=== PATIENT | female | born 1945 | race Hispanic/Latino ===

== ENCOUNTER → 2018-11-28 | Outpatient (CLI) | payer OTHER | END | disposition home or self-care (01) | LOC: RAH 10:40 | PROVIDERS: ATTEND Internal Medicine Cardiovascular Disease | DX: Z13.6 Encounter for screening for cardiovascular disorders (principal) | CPT/HCPCS: 75571 ==

== ENCOUNTER → 2019-01-10 | Outpatient (CLI) | payer MEDICARE | END | disposition home or self-care (01) | LOC: RAH 09:21 | PROVIDERS: ATTEND Family Medicine | DX: K80.20 Calculus of gallbladder without cholecystitis without obstruction (principal); I70.0 Atherosclerosis of aorta | CPT/HCPCS: 76700 ==

== ENCOUNTER → 2019-03-05 | Outpatient (CLI) | payer MEDICARE ==
[2019-03-05 15:28] LABS: ALBUMIN 3.6 g/dL (3.5-5.0); BILIRUBIN,DIRECT 0.1 mg/dL (0.0-0.3); BILIRUBIN,TOTAL 0.4 mg/dL (0.2-1.0); TOTAL PROTEIN, SERUM 7.4 g/dL (6.0-8.3)
[2019-03-06 11:17] LABS: CREATININE 0.8 mg/dL (0.5-1.5)
== END | disposition home or self-care (01) ==
LOC: LAB 14:46
PROVIDERS: ATTEND Internal Medicine Gastroenterology
DX: R94.5 Abnormal results of liver function studies (principal)
CPT/HCPCS: 36415; 80076; 82565; 84520

== ENCOUNTER → 2019-03-07 | Outpatient (CLI) | payer MEDICARE ==
[~2019-03-07] MED LIST: GADODIAMIDE 5 MMOL/10 ML VIAL 5 MMOL/10 ML VIAL IV ONE
== END | disposition home or self-care (01) ==
LOC: RAH 07:48
PROVIDERS: ATTEND Internal Medicine Gastroenterology
DX: R94.5 Abnormal results of liver function studies (principal)
CPT/HCPCS: 74183; A9579

== ENCOUNTER → 2019-08-07 | Outpatient (CLI) | payer MEDICARE | END | disposition home or self-care (01) | LOC: RAH 08:08 | PROVIDERS: ATTEND Internal Medicine Gastroenterology | DX: K80.20 Calculus of gallbladder without cholecystitis without obstruction (principal); R94.5 Abnormal results of liver function studies | CPT/HCPCS: 76700 ==

== ENCOUNTER 2020-01-16 09:32 | Inpatient (IN) | payer OTHER, MEDICARE ==
[~2020-01-16] VITALS: Ht 147.3 cm; Wt 52.7 kg
[2020-01-16 09:51] LABS: BASOPHILS % (AUTO) 0.5 % (0.0-5.0); EOSINOPHILS % (AUTO) 2.5 % (0.0-8.0); HEMATOCRIT 33.6 % (36-48); LYMPHOCYTES % (AUTO) 25.4 % (21.0-51.0); MEAN CORPUSCULAR HEMOGLOBIN 29.6 pg (27.0-33.0); MEAN CORPUSCULAR HGB CONC 33.3 g/dL (32.0-36.0); MEAN CORPUSCULAR VOLUME 88.7 fL (79-99); MONOCYTES % (AUTO) 6.6 % (3.0-13.0); NEUTROPHILS % (AUTO) 64.9 % (40.0-77.0); PLATELET COUNT (AUTO) 203 K/uL (130-400); RED BLOOD CELL COUNT(AUTO) 3.79 MIL/uL (4.00-5.50); WHITE BLOOD COUNT (AUTO) 7.7 K/uL (4.8-10.8)
[2020-01-16] MEDS ORDERED: ASPIRIN 325 MG TABLET ONE (09:52)
[2020-01-16 10:00] LABS: CREATININE 0.8 mg/dL (0.5-1.5); POTASSIUM 4.5 mmol/L (3.5-5.1)
[2020-01-16 10:04] LABS: ALBUMIN 3.9 g/dL (3.5-5.0); BILIRUBIN,TOTAL 0.4 mg/dL (0.2-1.0); TOTAL PROTEIN, SERUM 8.4 g/dL (6.0-8.3)
[2020-01-16 10:20] LABS: INR 0.97 (0.85-1.15); PARTIAL THROMBOPLASTIN TIME 26.5 SEC (26.3-35.5); PROTHROMBIN TIME 10.5 SEC (9.6-11.6)
[2020-01-16] MEDS ORDERED: SODIUM CHLORIDE 0.9% 1000ML 1,000 ML IV SCH (13:02)
[2020-01-16] MEDS ORDERED: DiphenhydrAMINE HCL 50 MG/ML VIAL IV PRN (13:15)
[2020-01-16] MEDS ORDERED: ACETAMINOPHEN 325 MG TAB PO PRN (13:15)
[2020-01-16] MEDS ORDERED: HYDRALAZINE HCL 20 MG/ML VIAL IV PRN (13:15)
[2020-01-16] MEDS ORDERED: MORPHINE SULFATE 2 MG/ML 1ML SYG IV PRN (13:15)
[2020-01-16] MEDS ORDERED: NITROGLYCERIN 0.4 MG SL TAB SL PRN (13:15)
[2020-01-16] MEDS ORDERED: DIPHENHYDRAMINE HCL 25 MG CAPSULE PO PRN (13:15)
[2020-01-16 14:05] LABS: % IRON SATURATION 27.2 % (22-44)
[2020-01-16] MEDS ORDERED: SODIUM CHLORIDE 0.9% 1000ML 1,000 ML IV ONE (15:04)
[2020-01-16 21:18] VITALS: BP 156/55
[2020-01-16] MEDS: METOPROLOL TARTRATE 25 MG TAB PO SCH (22:31)
[2020-01-16] MEDS: FAMOTIDINE/PF 20 MG/2 ML VIAL IV SCH (22:31)
[2020-01-16] MEDS: ATORVASTATIN CALCIUM 20 MG TABLET PO SCH (22:31)
[2020-01-16 23:34] VITALS: BP 147/57
[2020-01-16] MEDS ORDERED: METO-408 PO (23:54)
[2020-01-16] MEDS ORDERED: INSU100V12 SQ ×2 (23:54)
[2020-01-16] MEDS ORDERED: LEVO50TA11 PO (23:54)
[2020-01-16] MEDS ORDERED: METF-446 PO (23:54)
[2020-01-16] MEDS ORDERED: LISI-613 PO (23:54)
[2020-01-16] MEDS ORDERED: ISOS30TA6 PO (23:54)
[2020-01-16] MEDS ORDERED: NITR0.4T50 SL (23:54)
[2020-01-17 02:18] LABS: BASOPHILS % (AUTO) 0.5 % (0.0-5.0); EOSINOPHILS % (AUTO) 3.4 % (0.0-8.0); HEMATOCRIT 31.6 % (36-48); LYMPHOCYTES % (AUTO) 32.9 % (21.0-51.0); MEAN CORPUSCULAR HEMOGLOBIN 29.6 pg (27.0-33.0); MEAN CORPUSCULAR HGB CONC 32.9 g/dL (32.0-36.0); MONOCYTES % (AUTO) 6.6 % (3.0-13.0); NEUTROPHILS % (AUTO) 56.3 % (40.0-77.0); PLATELET COUNT (AUTO) 188 K/uL (130-400); RED BLOOD CELL COUNT(AUTO) 3.51 MIL/uL (4.00-5.50); WHITE BLOOD COUNT (AUTO) 8.8 K/uL (4.8-10.8)
[2020-01-17 02:33] LABS: HEMOGLOBIN A1C 6.3 % (4.0-6.0)
[2020-01-17 02:40] LABS: ALBUMIN 3.5 g/dL (3.5-5.0); BILIRUBIN,TOTAL 0.4 mg/dL (0.2-1.0); CREATININE 0.9 mg/dL (0.5-1.5); POTASSIUM 4.6 mmol/L (3.5-5.1); TOTAL PROTEIN, SERUM 7.4 g/dL (6.0-8.3)
[2020-01-17 02:53] LABS: B-TYPE NATRIURETIC PEPTIDE 99 pg/mL (0-100)
[2020-01-17 03:22] VITALS: BP 142/51
[2020-01-17 05:02] LABS: INR 0.99 (0.85-1.15); PARTIAL THROMBOPLASTIN TIME 27.1 SEC (26.3-35.5); PROTHROMBIN TIME 10.7 SEC (9.6-11.6)
[2020-01-17] MEDS: ASPIRIN 325 MG TABLET PO SCH (07:24)
[2020-01-17] MEDS: METOPROLOL TARTRATE 25 MG TAB PO SCH (07:24)
[2020-01-17] MEDS: FAMOTIDINE/PF 20 MG/2 ML VIAL IV SCH ×2 (07:24→20:10)
[2020-01-17 07:45] VITALS: BP 135/55
--- NOTE | 2020-01-17 08:00 | NUR ---
ASSESSMENT PT IS AAOX3 DENIES CP DENIES SOB DENIES NV NO COMPLAINTS RESTING IN BED. BREATHING PATTERN IS EVEN AND UNLABORED. NO VISIBLE SIGNS OF DISTRESS NOTED, CALL LIGHT WITHIN REACH. FAMILY AT BEDSIDE.
[2020-01-17] MEDS: INSULIN HUMULIN R 100 UNIT/ML 3ML SQ SCH ×5 (11:33→21:00)
[2020-01-17 11:39] VITALS: BP 124/57
[2020-01-17] MEDS ORDERED: NITROGLYCERIN 0.4 MG SL TAB SL PRN (14:00)
--- NOTE | 2020-01-17 14:58 | NUR ---
INITIAL Patient lives with daughter, Claudette Ji, [phone]. Another emergency contact is son, Bull Ji, [phone]. No home services. DME: BPM, glucometer (uses insulin). Patient is able to complete ADL's independently and drives. PCP is Dr. Caron Felipe. Pharmacy [facility]. DCP is home. Addendum: 01/17/20 at 1502 by MINRA PUCKETT SS Amended: Links added.
--- NOTE | 2020-01-17 15:27 | NUR ---
DR UNDERWOOD ROUNDED SAW PATIENT, NO NEW ORDERS RECEIVED AT THIS TIME
--- NOTE | 2020-01-17 15:34 | NUR ---
RD NOTIFICATION Pt admitted for acute chest pain. Pt with no recent weight loss. Good PO intake. elevated BG levels. Recommend to add 60gm CCD diet order. Pending surgical evaluation. RD to continue to monitor. Please notify as additional nutrition concerns arise. Thank you. Addendum: 01/17/20 at 1536 by [address] FELIPE K[address]ID RD RD Amended: Links added.
[2020-01-17 15:39] VITALS: BP 139/52
[2020-01-17 19:41] VITALS: BP 133/55
[2020-01-17] MEDS: ATORVASTATIN CALCIUM 20 MG TABLET PO SCH (20:10)
[2020-01-18] VITALS: BP 153/61
[2020-01-18 04:17] VITALS: BP 148/60
[2020-01-18 05:31] LABS: BASOPHILS % (AUTO) 0.6 % (0.0-5.0); EOSINOPHILS % (AUTO) 2.8 % (0.0-8.0); HEMATOCRIT 34.8 % (36-48); LYMPHOCYTES % (AUTO) 27.8 % (21.0-51.0); MEAN CORPUSCULAR HEMOGLOBIN 30.2 pg (27.0-33.0); MEAN CORPUSCULAR HGB CONC 33.9 g/dL (32.0-36.0); MONOCYTES % (AUTO) 6.2 % (3.0-13.0); NEUTROPHILS % (AUTO) 62.2 % (40.0-77.0); PLATELET COUNT (AUTO) 191 K/uL (130-400); RED BLOOD CELL COUNT(AUTO) 3.91 MIL/uL (4.00-5.50); RED CELL DISTRIBUTION WIDTH 12.8 % (11.0-15.5); WHITE BLOOD COUNT (AUTO) 8.5 K/uL (4.8-10.8)
[2020-01-18 05:48] LABS: ALBUMIN 3.7 g/dL (3.5-5.0); BILIRUBIN,TOTAL 0.4 mg/dL (0.2-1.0); CREATININE 0.8 mg/dL (0.5-1.5); POTASSIUM 4.7 mmol/L (3.5-5.1)
[2020-01-18] MEDS: LEVOTHYROXINE 50 MCG TABLET PO SCH (07:25)
[2020-01-18] MEDS: INSULIN HUMULIN R 100 UNIT/ML 3ML SQ SCH ×7 (07:26→21:00)
[2020-01-18] MEDS: INSULIN GLARGINE 100 UNITS/ML 10 ML VIAL SQ SCH (07:27)
[2020-01-18 07:35] VITALS: BP 151/52
[2020-01-18] MEDS ORDERED: ASPIRIN 81MG TAB.CHEW ONE (08:37)
[2020-01-18] MEDS: FAMOTIDINE/PF 20 MG/2 ML VIAL IV SCH ×2 (08:44→22:10)
[2020-01-18] MEDS: ISOSORBIDE MONO 30MG TAB SR PO SCH (08:44)
[2020-01-18] MEDS: METOPROLOL SUCCINATE 50 MG TAB.SR.24H PO SCH (08:44)
[2020-01-18] MEDS: LISINOPRIL 20 MG TABLET PO SCH (08:44)
[2020-01-18] MEDS: ASPIRIN 325 MG TABLET PO SCH (08:44)
[2020-01-18 11:31] VITALS: BP 120/59
[2020-01-18 15:48] VITALS: BP 132/57
[2020-01-18 19:45] VITALS: BP 126/57
[2020-01-18] MEDS: ATORVASTATIN CALCIUM 20 MG TABLET PO SCH (22:10)
[2020-01-19 00:07] VITALS: BP 109/49
[2020-01-19 04:08] VITALS: BP 125/53
[2020-01-19 04:23] LABS: BASOPHILS % (AUTO) 0.6 % (0.0-5.0); EOSINOPHILS % (AUTO) 3.8 % (0.0-8.0); HEMATOCRIT 31.5 % (36-48); LYMPHOCYTES % (AUTO) 28.2 % (21.0-51.0); MEAN CORPUSCULAR HEMOGLOBIN 29.7 pg (27.0-33.0); MEAN CORPUSCULAR HGB CONC 33.7 g/dL (32.0-36.0); MEAN CORPUSCULAR VOLUME 88.2 fL (79-99); MONOCYTES % (AUTO) 6.9 % (3.0-13.0); NEUTROPHILS % (AUTO) 60.2 % (40.0-77.0); PLATELET COUNT (AUTO) 193 K/uL (130-400); RED BLOOD CELL COUNT(AUTO) 3.57 MIL/uL (4.00-5.50); RED CELL DISTRIBUTION WIDTH 12.9 % (11.0-15.5); WHITE BLOOD COUNT (AUTO) 8.9 K/uL (4.8-10.8)
[2020-01-19 04:36] LABS: ALBUMIN 3.6 g/dL (3.5-5.0); BILIRUBIN,TOTAL 0.5 mg/dL (0.2-1.0); CREATININE 0.8 mg/dL (0.5-1.5); POTASSIUM 4.3 mmol/L (3.5-5.1); TOTAL PROTEIN, SERUM 7.6 g/dL (6.0-8.3)
[2020-01-19] MEDS: INSULIN HUMULIN R 100 UNIT/ML 3ML SQ SCH ×5 (06:33→21:00)
[2020-01-19] MEDS: LEVOTHYROXINE 50 MCG TABLET PO SCH (07:22)
[2020-01-19 07:29] VITALS: BP 126/47
[2020-01-19] MEDS: ASPIRIN 325 MG TABLET PO SCH (08:53)
[2020-01-19] MEDS: METOPROLOL SUCCINATE 50 MG TAB.SR.24H PO SCH (08:54)
[2020-01-19] MEDS: LISINOPRIL 20 MG TABLET PO SCH (08:54)
[2020-01-19] MEDS: ISOSORBIDE MONO 30MG TAB SR PO SCH (08:54)
[2020-01-19] MEDS: FAMOTIDINE/PF 20 MG/2 ML VIAL IV SCH ×2 (08:54→20:54)
[2020-01-19] MEDS: INSULIN GLARGINE 100 UNITS/ML 10 ML VIAL SQ SCH (08:58)
[2020-01-19 12:01] VITALS: BP 118/47
[2020-01-19 15:42] VITALS: BP 110/48
[2020-01-19 20:00] VITALS: BP 120/54
[2020-01-19] MEDS: ATORVASTATIN CALCIUM 20 MG TABLET PO SCH (20:54)
[2020-01-20 00:28] VITALS: BP 121/52
[2020-01-20 04:02] VITALS: BP 153/66
[2020-01-20 04:25] LABS: BASOPHILS % (AUTO) 0.4 % (0.0-5.0); EOSINOPHILS % (AUTO) 4.1 % (0.0-8.0); HEMATOCRIT 32.6 % (36-48); MEAN CORPUSCULAR HEMOGLOBIN 29.8 pg (27.0-33.0); MEAN CORPUSCULAR HGB CONC 33.7 g/dL (32.0-36.0); MEAN CORPUSCULAR VOLUME 88.3 fL (79-99); NEUTROPHILS % (AUTO) 57.1 % (40.0-77.0); PLATELET COUNT (AUTO) 185 K/uL (130-400); RED BLOOD CELL COUNT(AUTO) 3.69 MIL/uL (4.00-5.50); RED CELL DISTRIBUTION WIDTH 12.6 % (11.0-15.5); WHITE BLOOD COUNT (AUTO) 7.8 K/uL (4.8-10.8)
[2020-01-20 04:40] LABS: ALBUMIN 3.7 g/dL (3.5-5.0); BILIRUBIN,TOTAL 0.5 mg/dL (0.2-1.0); CREATININE 0.8 mg/dL (0.5-1.5); POTASSIUM 4.1 mmol/L (3.5-5.1); TOTAL PROTEIN, SERUM 7.9 g/dL (6.0-8.3)
[2020-01-20] MEDS: INSULIN HUMULIN R 100 UNIT/ML 3ML SQ SCH ×2 (06:56→11:30)
[2020-01-20] MEDS: LEVOTHYROXINE 50 MCG TABLET PO SCH (06:59)
[2020-01-20 08:08] VITALS: BP 121/53
[2020-01-20] MEDS: INSULIN GLARGINE 100 UNITS/ML 10 ML VIAL SQ SCH (08:10)
[2020-01-20] MEDS: FAMOTIDINE/PF 20 MG/2 ML VIAL IV SCH (08:52)
[2020-01-20] MEDS: ISOSORBIDE MONO 30MG TAB SR PO SCH (08:53)
[2020-01-20] MEDS: METOPROLOL SUCCINATE 50 MG TAB.SR.24H PO SCH (08:53)
[2020-01-20] MEDS: LISINOPRIL 20 MG TABLET PO SCH (08:53)
[2020-01-20] MEDS: ASPIRIN 325 MG TABLET PO SCH (08:53)
[2020-01-20] MEDS ORDERED: AEC81 PO (10:38)
[2020-01-20] MEDS ORDERED: ATOR20TA65 PO (10:38)
[2020-01-20 12:14] VITALS: BP 136/52
[2020-01-25] MEDS ORDERED: ACET-2893 PO (13:20)
[2020-01-25] MEDS ORDERED: GABA-529 PO (13:20)
[2020-01-25] MEDS ORDERED: HUMLIS7525 SQ ×2 (14:56)
[2020-01-28] MEDS ORDERED: ACET650T7 PO (06:38)
== END 2020-01-20 15:15 | disposition home or self-care (01) | DRG 303 ==
LOC: EDH 09:32 → EDHIP 13:02 → 2DH 22:14
PROVIDERS: ADMIT Hospitalist; ATTEND Hospitalist
DX: I25.118 Atherosclerotic heart disease of native coronary artery with other forms of angina pectoris (principal); E87.1 Hypo-osmolality and hyponatremia; D64.9 Anemia, unspecified; N18.3 Chronic kidney disease, stage 3 (moderate); I12.9 Hypertensive chronic kidney disease with stage 1 through stage 4 chronic kidney disease, or unspecified chronic kidney disease; E11.22 Type 2 diabetes mellitus with diabetic chronic kidney disease; E03.9 Hypothyroidism, unspecified; E78.5 Hyperlipidemia, unspecified; E86.0 Dehydration
CPT/HCPCS: 36415; 71045; 80053; 80061; 82948; 83036; 83540; 83550; 83880; 84484; 85025; 85610; 85730; 86850; 86900; 86901; 86922; 93005; 93880; 94010; G0378; J1815; J3490; J7030

== ENCOUNTER 2020-01-28 05:47 | Inpatient (IN) | payer OTHER, MEDICARE ==
[2020-01-25 12:03] LABS: BASOPHILS % (AUTO) 0.6 % (0.0-5.0); EOSINOPHILS % (AUTO) 2.3 % (0.0-8.0); HEMATOCRIT 33.9 % (36-48); LYMPHOCYTES % (AUTO) 21.6 % (21.0-51.0); MEAN CORPUSCULAR HEMOGLOBIN 29.7 pg (27.0-33.0); MEAN CORPUSCULAR HGB CONC 33.3 g/dL (32.0-36.0); MONOCYTES % (AUTO) 7.2 % (3.0-13.0); PLATELET COUNT (AUTO) 197 K/uL (130-400); RED BLOOD CELL COUNT(AUTO) 3.81 MIL/uL (4.00-5.50); RED CELL DISTRIBUTION WIDTH 13.1 % (11.0-15.5); WHITE BLOOD COUNT (AUTO) 8.8 K/uL (4.8-10.8)
[2020-01-25 12:09] LABS: INR 0.96 (0.85-1.15); PARTIAL THROMBOPLASTIN TIME 27.8 SEC (26.3-35.5); PROTHROMBIN TIME 10.4 SEC (9.6-11.6)
[2020-01-25 12:11] LABS: HEMOGLOBIN A1C 6.3 % (4.0-6.0)
[2020-01-25 12:12] LABS: BILIRUBIN,TOTAL 0.4 mg/dL (0.2-1.0); CREATININE 0.8 mg/dL (0.5-1.5); POTASSIUM 5.2 mmol/L (3.5-5.1); TOTAL PROTEIN, SERUM 8.5 g/dL (6.0-8.3)
[2020-01-25 13:16] VITALS: BP 125/61
[~2020-01-28] VITALS: Ht 132.1 cm; Wt 61.6 kg
[2020-01-28] VITALS (40 sets, daily range): BP systolic 91–290; BP diastolic 27–288
[~2020-01-28 05:47] MED LIST changes: +AEC81 PO; +AMINOCAPROIC ACID 15,000 MG in SODIUM CHLORIDE 0.9% 500ML 420 ML IV PRN; +ATOR20TA65 PO; +EPINEPHRINE 10 MG in SODIUM CHLORIDE 0.9% 240 ML IV PRN; +GABA-529 PO; -GADODIAMIDE 5 MMOL/10 ML VIAL 5 MMOL/10 ML VIAL IV ONE; +HUMLIS7525 SQ; +ISOS30TA6 PO; +LEVO50TA11 PO; +LISI-613 PO; +METO-408 PO; +NITR0.4T50 SL; +NOREPINEPHRINE BITARTRATE 8 MG in DEXTROSE 5%-WATER 250 ML IV PRN
[2020-01-28] MEDS: CEFUROXIME SODIUM 1.5 GM VIAL IVP SCH ×2 (06:00→08:00)
[2020-01-28] MEDS ORDERED: SODIUM CHLORIDE 0.9% 1000ML 1,000 ML IV ONE ×2 (06:06→10:52)
[2020-01-28 06:25] LABS: BASOPHILS % (AUTO) 0.5 % (0.0-5.0); LYMPHOCYTES % (AUTO) 17.9 % (21.0-51.0); MEAN CORPUSCULAR HEMOGLOBIN 30.1 pg (27.0-33.0); MEAN CORPUSCULAR HGB CONC 33.2 g/dL (32.0-36.0); MEAN CORPUSCULAR VOLUME 90.4 fL (79-99); MONOCYTES % (AUTO) 6.2 % (3.0-13.0); NEUTROPHILS % (AUTO) 73.1 % (40.0-77.0); PLATELET COUNT (AUTO) 210 K/uL (130-400); RED BLOOD CELL COUNT(AUTO) 3.76 MIL/uL (4.00-5.50); RED CELL DISTRIBUTION WIDTH 13.2 % (11.0-15.5); WHITE BLOOD COUNT (AUTO) 11.5 K/uL (4.8-10.8)
[2020-01-28] MEDS ORDERED: ACET-2521 PO (06:38)
[2020-01-28] MEDS ORDERED: NITROGLYCERIN 50 MG/D5% WATER 1 BOT ONE (06:59)
[2020-01-28] MEDS ORDERED: EPINEPHRINE 1 MG/ML AMPULE ONE (07:32)
[2020-01-28] MEDS ORDERED: HEPARIN SODIUM 1000UNIT/ML 10ML VIAL ONE (07:32)
[2020-01-28] MEDS ORDERED: LIDOCAINE PF 2% 5ML ABBOJECT ONE (07:32)
[2020-01-28] MEDS ORDERED: PROTAMINE SULFATE 10 MG/ML 25ML VIAL IV ONE ×2 (07:32→10:42)
[2020-01-28] MEDS ORDERED: ESMOLOL HCL 10 MG/ML 10 ML VIAL ONE (07:32)
[2020-01-28] MEDS ORDERED: SODIUM BICARB 50MEQ 50ML VIAL ONE (07:32)
[2020-01-28] MEDS ORDERED: PROPOFOL 10 MG/ML 20ML VIAL IV ONE (07:33)
[2020-01-28] MEDS ORDERED: MIDAZOLAM HCL 1 MG/ML 2ML VIAL ONE (07:33)
[2020-01-28] MEDS ORDERED: AMINOCAPROIC ACID 250 MG/ML 20 ML VIAL IV ONE (07:33)
[2020-01-28] MEDS ORDERED: ROCURONIUM 10MG/1ML SYR 10 MG/ML ML ONE (07:33)
[2020-01-28] MEDS ORDERED: NOREPINEPHRINE BITARTRATE 1 MG/1 ML ML IV ONE (07:33)
[2020-01-28] MEDS ORDERED: SUFENTANIL CITRATE 50 MCG/ML AMP ONE (07:35)
[2020-01-28] MEDS ORDERED: LACTATED RINGERS 1000ML 1,000 ML IV ONE (07:36)
[2020-01-28] MEDS ORDERED: KETAMINE 50MG/ML SYRINGE 50 MG/ML DISP.SYRIN IV ONE (07:40)
[2020-01-28] MEDS ORDERED: DELNIDO FORMULA 0 BAG IV ONE (07:51)
[2020-01-28] MEDS ORDERED: CEFAZOLIN SODIUM 1 GM VIAL ONE (08:17)
[2020-01-28] MEDS ORDERED: PAPAVERINE HCL 30 MG/ML 2ML VIAL ONE (08:17)
[2020-01-28 08:34] LABS: ABG BASE EXCESS -2.6 mmol/L (-2.0-3.0); ABG HCO3 20.5 mmol/L (21.0-28.0); ABG PCO2 30 mmHg (32-45)
[2020-01-28 09:38] LABS: ABG BASE EXCESS -1.6 mmol/L (-2.0-3.0); ABG HCO3 22.1 mmol/L (21.0-28.0); ABG OXYGEN SATURATION 98.9 % (95.0-99.0); ABG PCO2 33 mmHg (32-45)
[2020-01-28] MEDS ORDERED: AMIODARONE HCL 50 MG/ML 3 ML VIAL ONE (09:39)
[2020-01-28] MEDS ORDERED: ATROPINE SULFATE 0.1 MG/ML 10 ML SYG IVP ONE ×2 (09:43→09:51)
[2020-01-28] MEDS ORDERED: GLYCOPYRROLATE 1 MG/5 ML SYRINGE ONE (09:43)
[2020-01-28] MEDS ORDERED: ATROPINE SULFATE 0.4 MG/ML 1 ML VIAL IJ ONE (09:51)
[2020-01-28 10:11] LABS: ABG BASE EXCESS -1.1 mmol/L (-2.0-3.0); ABG HCO3 20.6 mmol/L (21.0-28.0); ABG OXYGEN SATURATION 98.5 % (95.0-99.0); ABG PCO2 24 mmHg (32-45)
[2020-01-28] MEDS ORDERED: SODIUM CHLORIDE 0.9% 500ML 500 ML IV SCH (10:20)
[2020-01-28] MEDS ORDERED: NOREPINEPHRINE 4MG/NS 250ML 250 ML IV PRN (10:30)
[2020-01-28] MEDS ORDERED: ACETAMINOPHEN 325 MG TAB PO PRN ×2 (10:30)
[2020-01-28] MEDS ORDERED: SODIUM CHLORIDE 0.9% 250 ML IV PRN (10:30)
[2020-01-28] MEDS ORDERED: GLUCAGON 1MG KIT 1 MG ML IM PRN (10:30)
[2020-01-28] MEDS ORDERED: SODIUM CHLORIDE 0.9% 1000ML 1,000 ML IV SCH (10:30)
[2020-01-28] MEDS ORDERED: SODIUM CHLORIDE 0.9% 10 ML VIAL IVP PRN (10:30)
[2020-01-28] MEDS ORDERED: DEXTROSE 50%-WATER 50 ML DISP.SYRIN IV PRN (10:30)
[2020-01-28] MEDS ORDERED: EPINEPHRINE 10 MG in DEXTROSE 5%-WATER 250 ML IV PRN (10:30)
[2020-01-28] MEDS ORDERED: MORPHINE SULFATE 4 MG/1ML SYG IV PRN (10:30)
[2020-01-28] MEDS ORDERED: MORPHINE SULFATE 2 MG/ML 1ML SYG IV PRN (10:30)
[2020-01-28] MEDS ORDERED: TRAMADOL HCL 50 MG TABLET PO PRN ×2 (10:30)
[2020-01-28] MEDS ORDERED: POTASSIUM PHOS 15 mMOL+NS250ML 250 ML IV PRN (10:30)
[2020-01-28] MEDS ORDERED: ONDANSETRON HCL 4 MG/2 ML VIAL IV PRN (10:30)
[2020-01-28] MEDS ORDERED: ACETAMINOPHEN 650 MG SUPPOSITORY RC PRN (10:30)
[2020-01-28] MEDS ORDERED: NITROGLYCERIN 50 MG/D5% WATER 250 BOT IV SCH (10:30)
[2020-01-28] MEDS ORDERED: AMINOCAPROIC ACID 15,000 MG in SODIUM CHLORIDE 0.9% 250 ML IV SCH (10:30)
[2020-01-28] MEDS ORDERED: ALBUMIN (HUMAN) 5% 250 ML IV PRN (10:30)
[2020-01-28 10:32] LABS: HEMOGLOBIN A1C 6.6 % (4.0-6.0)
[2020-01-28] MEDS ORDERED: PROTAMINE SULFATE 10 MG/ML 5 ML VIAL ONE (10:42)
[2020-01-28 10:47] LABS: ABG OXYGEN SATURATION 98.5 % (95.0-99.0); ABG PCO2 30 mmHg (32-45)
[2020-01-28] MEDS ORDERED: FENTANYL CITRATE PF 50 MCG/1 ML 2ML VIAL ONE ×2 (11:05)
[2020-01-28 11:18] LABS: ABG BASE EXCESS 0.9 mmol/L (-2.0-3.0); ABG HCO3 24.1 mmol/L (21.0-28.0); ABG OXYGEN SATURATION 98.6 % (95.0-99.0); ABG PCO2 33 mmHg (32-45)
--- NOTE | 2020-01-28 11:53 | NUR ---
PT WAS RECEIVED FROM [facility] PT WAS ACCOMPANIED BY Darrion Rodriguez AND SURGERY STAFF. PT WAS CONNECTED TO GLASS FURNACE TENDER AND VENTILATOR PRESCRIBED. PT HAS IABP TO LEFT GROIN AND SET AT 1:1 SETTINGS. PT SHOWING SINUA TACH TO GLASS FURNACE TENDER. SEE DOCUMENTATION OF ASSESSMENTS.
[2020-01-28 12:11] LABS: ABG BASE EXCESS -5.2 mmol/L (-2.0-3.0); ABG HCO3 17.1 mmol/L (21.0-28.0); ABG OXYGEN SATURATION 98.8 % (95.0-99.0); ABG PCO2 25 mmHg (32-45)
[2020-01-28 12:20] LABS: HEMATOCRIT 32.4 % (36-48); MEAN CORPUSCULAR HEMOGLOBIN 30.4 pg (27.0-33.0); MEAN CORPUSCULAR HGB CONC 34.6 g/dL (32.0-36.0); MEAN CORPUSCULAR VOLUME 87.8 fL (79-99); PLATELET COUNT (AUTO) 104 K/uL (130-400); RED BLOOD CELL COUNT(AUTO) 3.69 MIL/uL (4.00-5.50); RED CELL DISTRIBUTION WIDTH 13.7 % (11.0-15.5); WHITE BLOOD COUNT (AUTO) 25.4 K/uL (4.8-10.8)
--- NOTE | 2020-01-28 12:20 | NUR ---
DR. UNDERWOOD HERE AND ADVISED OF PT'S V/S AND ASSESSMENTS.
[2020-01-28 12:33] LABS: INR 1.29 (0.85-1.15); PARTIAL THROMBOPLASTIN TIME 26.4 SEC (26.3-35.5); PROTHROMBIN TIME 13.8 SEC (9.6-11.6)
[2020-01-28] MEDS: SODIUM BICARB 50MEQ 50ML VIAL IV PRN ×2 (12:34→20:22)
[2020-01-28] MEDS: INSULIN REGULAR, HUMAN 3ML 100 UNIT in SODIUM CHLORIDE 0.9% 99 ML IV SCH ×4 (12:37→20:44)
[2020-01-28 12:51] LABS: MAGNESIUM 1.6 mg/dL (1.80-2.40); PHOSPHORUS 3.2 mg/dL (2.5-4.9); POTASSIUM 3.6 mmol/L (3.5-5.1)
[2020-01-28] MEDS: CALCIUM GLUCONATE 1 GM in SODIUM CHLORIDE 0.9% 50 ML IV PRN ×2 (13:17→22:53)
[2020-01-28] MEDS: MAGNESIUM 2GM PREMIX 50ML 50 ML IV PRN ×2 (13:18→14:58)
[2020-01-28] MEDS: POTASSIUM CHLORIDE 20MEQ/100ML 100 ML IV PRN ×5 (13:19→22:53)
[2020-01-28 14:26] LABS: ABG HCO3 22.5 mmol/L (21.0-28.0); ABG OXYGEN SATURATION 98.8 % (95.0-99.0); ABG PCO2 30 mmHg (32-45)
[2020-01-28] MEDS: CEFAZOLIN SODIUM 1 GM VIAL IV SCH ×2 (14:52→22:57)
[2020-01-28] MEDS ORDERED: KETOROLAC TROMETHAMINE 30MG/ML ONE (16:00)
--- NOTE | 2020-01-28 16:33 | NUR ---
INITIAL SW spoke with patient's son, Bull Ji, [phone]. Patient lives with daughter, Claudette Ji, [phone]. No home services. DME: glucometer (uses insulin). As per daughter, patient was able to complete ADL's independently but now requires help. Patient does not drive. PCP is Dr. Caron Felipe. Pharmacy is [facility]. DCP is home but family is pending MD recommendations to make decision. Addendum: 01/28/20 at 1636 by MIRNA PUCKETT SS Amended: Links added.
[2020-01-28] MEDS ORDERED: ALBUMIN (HUMAN) 5% 250 ML IV SCH (18:15)
[2020-01-28 18:46] LABS: CREATININE 1.3 mg/dL (0.5-1.5); MAGNESIUM 2.9 mg/dL (1.80-2.40); POTASSIUM 3.3 mmol/L (3.5-5.1)
[2020-01-28 20:07] LABS: ABG BASE EXCESS -1.2 mmol/L (-2.0-3.0); ABG HCO3 23.3 mmol/L (21.0-28.0); ABG OXYGEN SATURATION 98.2 % (95.0-99.0); ABG PCO2 38 mmHg (32-45)
[2020-01-28] MEDS ORDERED: CALCIUM GLUCONATE 1 GM/10 ML VIAL IV ONE (20:27)
[2020-01-28] MEDS: FAMOTIDINE/PF 20 MG/2 ML VIAL IV SCH (20:31)
[2020-01-28] MEDS: ATORVASTATIN CALCIUM 20 MG TABLET PO SCH (20:31)
[2020-01-28 22:48] LABS: ABG BASE EXCESS 3.5 mmol/L (-2.0-3.0); ABG HCO3 27.5 mmol/L (21.0-28.0); ABG PCO2 39 mmHg (32-45)
--- NOTE | 2020-01-28 23:20 | NUR ---
Dr. Lang called and gave an update on patient. at 2310, patient had full body convulsion and eyes deviated to right. This lasted for 40 seconds. During this time, Heart rate increased to 143 and blood pressure dropped to 90/60 via arterial line. Epinepherine has been constant at 0.1 mcg/kg/min, and Levofed increased from 5 to 10 mcg/min. Dr. Lang ordered propofol drip and a CT scan in the A.M.
[2020-01-28] MEDS: PROPOFOL 1000 MG/100 ML 100 ML IV PRN (23:31)
[2020-01-29] VITALS (61 sets, daily range): BP systolic 110–188; BP diastolic 17–114
[2020-01-29 02:14] LABS: ABG BASE EXCESS 6.2 mmol/L (-2.0-3.0); ABG HCO3 30.8 mmol/L (21.0-28.0); ABG OXYGEN SATURATION 97.9 % (95.0-99.0); ABG PCO2 45 mmHg (32-45)
[2020-01-29] MEDS: CALCIUM GLUCONATE 1 GM in SODIUM CHLORIDE 0.9% 50 ML IV PRN (02:16)
[2020-01-29] MEDS: POTASSIUM CHLORIDE 20MEQ/100ML 100 ML IV PRN ×2 (02:17→13:26)
[2020-01-29 04:37] LABS: MEAN CORPUSCULAR HEMOGLOBIN 30.4 pg (27.0-33.0); MEAN CORPUSCULAR HGB CONC 34.3 g/dL (32.0-36.0); MEAN CORPUSCULAR VOLUME 88.5 fL (79-99); RED CELL DISTRIBUTION WIDTH 14.5 % (11.0-15.5)
[2020-01-29 04:40] LABS: PLATELET COUNT (AUTO) 62 K/uL (130-400)
[2020-01-29 04:49] LABS: INR 1.08 (0.85-1.15); PARTIAL THROMBOPLASTIN TIME 34.3 SEC (26.3-35.5); PROTHROMBIN TIME 11.6 SEC (9.6-11.6)
[2020-01-29 04:50] LABS: CREATININE 0.9 mg/dL (0.5-1.5); MAGNESIUM 1.9 mg/dL (1.80-2.40); POTASSIUM 4.4 mmol/L (3.5-5.1)
[2020-01-29] MEDS ORDERED: CALCIUM GLUCONATE 1 GM/10 ML VIAL IV ONE (05:09)
[2020-01-29] MEDS: PROPOFOL 1000 MG/100 ML 100 ML IV PRN (05:15)
[2020-01-29] MEDS: CEFUROXIME SODIUM 1.5 GM VIAL IVP SCH (06:00)
--- NOTE | 2020-01-29 06:10 | NUR ---
Took patient to CT scan at 0610 and returned at 0630 with no complications.
--- NOTE | 2020-01-29 07:15 | NUR ---
PT REMAINS VENTILATOR DEPENDENT REMAINS ON VENTILATOR AND REMAINS ON IABP AT 1:1. SEE DOCUMENTATION OF V/S AND ASSESSMENT. PT WILL OPEN EYES BUT DOES NOT FOCUS ON NURSING STAFF AND FOLLOWS NO COMMANDS AND DOES RESPOND TO PAIN WITH ALL FOUR EXTREMITIES.
[2020-01-29] MEDS: LEVOTHYROXINE 50 MCG TABLET PO SCH (07:30)
[2020-01-29 08:25] LABS: ABG BASE EXCESS 2.1 mmol/L (-2.0-3.0); ABG OXYGEN SATURATION 97.2 % (95.0-99.0); ABG PCO2 38 mmHg (32-45)
--- NOTE | 2020-01-29 08:30 | NUR ---
SPOKE WITH SON AND ADVISED HIM THAT PT WAS STABLE WITH THE BLOOD PRESSURE AND HEART RHYTHM. ASKED IF PT HAD HISTORY OF SEIZURES AND SON STATED THAT THE "ONLY PROCEDURES SHE HAD WAS THE CARDIAC CATH" NOT SURE SON UNDERSTOOD THE QUESTION.
[2020-01-29] MEDS: FAMOTIDINE/PF 20 MG/2 ML VIAL IV SCH ×2 (09:15→21:35)
[2020-01-29] MEDS: CEFAZOLIN SODIUM 1 GM VIAL IV SCH (09:15)
[2020-01-29] MEDS: ASPIRIN 81 MG EC TAB PO SCH (09:16)
[2020-01-29] MEDS: FUROSEMIDE 10 MG/ML 2ML VIAL IV SCH ×2 (09:17→21:35)
--- NOTE | 2020-01-29 11:09 | NUR ---
Patient is not ready for skilled Physical Therapy Evaluation today as per Boogie Hoffman RN. Addendum: 01/29/20 at 1110 by CASSIE PEREZ, PT PT Amended: Links added.
--- NOTE | 2020-01-29 11:45 | NUR ---
SON HAS CALLED AGAIN AND WANTING TO BE UPDATED ON PT'S STATUS. CONCERNED BECAUSE PT HAS NOT WOKEN UP AND WOULD LIKE TO TALK TO DR. UNDERWOOD AFTER HE ASSESSES THE PATIENT.
--- NOTE | 2020-01-29 12:30 | NUR ---
DR. CARRINGTON HERE AND GIVEN UPDATE ON PATIENT'S STATUS.
--- NOTE | 2020-01-29 13:00 | NUR ---
PT HAS BEEN OPENING EYES BUT CONTINUES NOT TO FOCUS. WILL NOT FOLLOW ANY SIMPLE COMMANDS.
[2020-01-29] MEDS: MAGNESIUM 2GM PREMIX 50ML 50 ML IV PRN (13:27)
--- NOTE | 2020-01-29 13:50 | NUR ---
PT HAD IABP DC'D BY DR. UNDERWOOD STAFF. DR. UNDERWOOD WAS GIVEN UPDATE AND DR. UNDERWOOD CALLED SON TO GIVE HIM AN UPDATE ON PATIENT.
[2020-01-29 15:59] LABS: CREATININE 0.8 mg/dL (0.5-1.5); MAGNESIUM 2.9 mg/dL (1.80-2.40)
--- NOTE | 2020-01-29 17:00 | NUR ---
PT HAS BEEN MOVING HER RIGHT LEG AND HAD A SHEET ACROSS THE LEFT LEG TO KEEP HER FROM BENDING HER LEFT LEG WHERE HER IABP HAD BEEN INSERTED. PT IS MORE ALERT LOOKING AND HAS MADE NO EFFORT TO FOLLOW ANY COMMANDS.
[2020-01-29] MEDS: ATORVASTATIN CALCIUM 20 MG TABLET PO SCH (21:34)
[2020-01-29 23:00] LABS: POTASSIUM 3.7 mmol/L (3.5-5.1)
[2020-01-30] VITALS (49 sets, daily range): BP systolic 99–166; BP diastolic 32–75
[2020-01-30] MEDS: POTASSIUM CHLORIDE 20MEQ/100ML 100 ML IV PRN ×2 (00:27→06:15)
[2020-01-30] MEDS: CALCIUM GLUCONATE 1 GM in SODIUM CHLORIDE 0.9% 50 ML IV PRN (00:27)
[2020-01-30] MEDS ORDERED: CALCIUM GLUCONATE 1 GM/10 ML VIAL IV ONE (00:27)
[2020-01-30 03:48] LABS: ABG BASE EXCESS 5.3 mmol/L (-2.0-3.0); ABG HCO3 29.1 mmol/L (21.0-28.0); ABG OXYGEN SATURATION 98.9 % (95.0-99.0); ABG PCO2 40 mmHg (32-45)
[2020-01-30 05:19] LABS: HEMATOCRIT 21.4 % (36-48); MEAN CORPUSCULAR HEMOGLOBIN 29.8 pg (27.0-33.0); MEAN CORPUSCULAR HGB CONC 32.7 g/dL (32.0-36.0); MEAN CORPUSCULAR VOLUME 91.1 fL (79-99); PLATELET COUNT (AUTO) 63 K/uL (130-400); RED BLOOD CELL COUNT(AUTO) 2.35 MIL/uL (4.00-5.50); RED CELL DISTRIBUTION WIDTH 14.6 % (11.0-15.5); WHITE BLOOD COUNT (AUTO) 25.6 K/uL (4.8-10.8)
[2020-01-30 05:54] LABS: CREATININE 0.9 mg/dL (0.5-1.5); POTASSIUM 3.6 mmol/L (3.5-5.1)
[2020-01-30] MEDS: INSULIN REGULAR, HUMAN 3ML 100 UNIT in SODIUM CHLORIDE 0.9% 99 ML IV SCH ×2 (06:17)
[2020-01-30] MEDS: LEVOTHYROXINE 50 MCG TABLET PO SCH (06:43)
--- NOTE | 2020-01-30 08:25 | NUR ---
DR UNDERWOOD NOTIFIED WITH PT LAB/VS/IO'S/MEDS/ABG/VENT STATUS. ORDERS RECEIVED. WILL GIVE 1 UNIT PRBC AND CONTINUE TO WEAN VENT. PT VENT RATE DECREASED TO 8.
[2020-01-30] MEDS: FAMOTIDINE/PF 20 MG/2 ML VIAL IV SCH ×2 (08:53→21:18)
[2020-01-30] MEDS: METOPROLOL TARTRATE 25 MG TAB PO SCH ×3 (08:53→21:18)
[2020-01-30] MEDS: ASPIRIN 81 MG EC TAB PO SCH (08:53)
[2020-01-30] MEDS ORDERED: FUROSEMIDE 10 MG/ML 2ML VIAL IV SCH (09:00)
[2020-01-30] MEDS ORDERED: FUROSEMIDE 20 MG TABLET PO SCH (09:00)
--- NOTE | 2020-01-30 09:57 | NUR ---
ABG REVIEWED- VENT RATE DECREASED TO 4. WILL CONTINUE TO MONITOR. CURRENTLY GETTING 1 UNIT PRBC. WILL GIVE LASIX AFTER TRANSFUSION THEN ATTEMPT TO EXTUBATE
--- NOTE | 2020-01-30 10:58 | NUR ---
DR UNDERWOOD ROUNDS AT BEDSIDE. ORDERS RECEIVED
--- NOTE | 2020-01-30 11:14 | NUR ---
patient is intubated, as per BETY Arnold not ready to initiate Physical Therapy Evaluation today. Addendum: 01/30/20 at 1115 by CASSIE PEREZ, JUICE PT Amended: Links added.
--- NOTE | 2020-01-30 11:40 | NUR ---
TRANSUSION COMPLETED-LASIX GIVEN- PLACED ON CPAP 5/10 FIO2 40%
--- NOTE | 2020-01-30 11:50 | NUR ---
PT CALM-NO DYSPNEA- CPAP 5/5 40%. WILL MONITOR AND CHECK ABG ORDERED
[2020-01-30 13:24] LABS: ABG BASE EXCESS -1.2 mmol/L (-2.0-3.0); ABG OXYGEN SATURATION 97.8 % (95.0-99.0); ABG PCO2 36 mmHg (32-45)
[2020-01-30] MEDS: SODIUM BICARB 50MEQ 50ML VIAL IV PRN (13:28)
--- NOTE | 2020-01-30 14:00 | NUR ---
EXTUBATED AND PLACED ON 40%COOL MIST MASK...DR UNDERWOOD GAVE ORDER AFTER I HAD CALLED HIM ABG RESULTS. OGT REMOVED DURING EXTUBATION.
[2020-01-30 15:05] LABS: ABG BASE EXCESS 3.6 mmol/L (-2.0-3.0); ABG HCO3 28.2 mmol/L (21.0-28.0); ABG OXYGEN SATURATION 98.1 % (95.0-99.0); ABG PCO2 42 mmHg (32-45)
--- NOTE | 2020-01-30 15:34 | NUR ---
PT HARD OF HEARING. SHE IS MOSTLY DROWSY. I CAN WAKE HER UP AND SHE NOW LOOKS AT ME. SHE WAS ABLE TO LIFT HER RT HAND ON COMMAND BUT WHEN I ASK HER TO DO ANYTHING ELSE SHE JUST SMILES. PT IN NO DISTRESS. STABLE
[2020-01-30] MEDS: INSULIN HUMULIN R 100 UNIT/ML 3ML SQ SCH ×2 (15:36→22:17)
--- NOTE | 2020-01-30 18:26 | NUR ---
PT NOW BEGINNING TO NOD YES AND NO.
--- NOTE | 2020-01-30 19:39 | NUR ---
TRANSFERRED TO ROOM 207. HAND OFF REPORT GIVEN TO ALEJA ALBERT
[2020-01-30] MEDS: ATORVASTATIN CALCIUM 20 MG TABLET PO SCH (21:18)
[2020-01-30] MEDS: FUROSEMIDE 10 MG/ML 2ML VIAL IV SCH (21:18)
[2020-01-31] VITALS (29 sets, daily range): BP systolic 80–140; BP diastolic 27–75
[2020-01-31 05:09] LABS: HEMATOCRIT 24.9 % (36-48); MEAN CORPUSCULAR HEMOGLOBIN 29.3 pg (27.0-33.0); MEAN CORPUSCULAR HGB CONC 32.5 g/dL (32.0-36.0); MEAN CORPUSCULAR VOLUME 90.2 fL (79-99); PLATELET COUNT (AUTO) 60 K/uL (130-400); RED BLOOD CELL COUNT(AUTO) 2.76 MIL/uL (4.00-5.50); RED CELL DISTRIBUTION WIDTH 16.2 % (11.0-15.5); WHITE BLOOD COUNT (AUTO) 16.8 K/uL (4.8-10.8)
[2020-01-31 05:19] LABS: CREATININE 0.8 mg/dL (0.5-1.5); POTASSIUM 3.1 mmol/L (3.5-5.1)
[2020-01-31] MEDS: LEVOTHYROXINE 50 MCG TABLET PO SCH (06:20)
[2020-01-31] MEDS: INSULIN HUMULIN R 100 UNIT/ML 3ML SQ SCH ×4 (06:28→21:00)
[2020-01-31] MEDS: POTASSIUM CHLORIDE 20MEQ/100ML 100 ML IV PRN ×2 (06:58→15:29)
[2020-01-31] MEDS: FAMOTIDINE/PF 20 MG/2 ML VIAL IV SCH (08:01)
[2020-01-31] MEDS: METOPROLOL TARTRATE 25 MG TAB PO SCH ×3 (08:01→21:14)
[2020-01-31] MEDS: ASPIRIN 81 MG EC TAB PO SCH (08:01)
[2020-01-31] MEDS: FUROSEMIDE 10 MG/ML 2ML VIAL IV SCH ×2 (08:02→21:14)
[2020-01-31] MEDS: ENOXAPARIN SODIUM 30 MG/0.3 ML SQ SCH (08:03)
[2020-01-31] MEDS ORDERED: CLOPIDOGREL BISULFATE 75 MG TAB PO SCH (09:00)
--- NOTE | 2020-01-31 20:00 | NUR ---
ALEJANDRO , L IJ CORDIS REMOVED. CT AND ARTERIAL LINE OUT AM SHIFT.BM TODAY. REPORT GIVEN TO BETY MIR. PATIENT TRANSFERRED TO ROOM 204, PATIENT AWAKE ALERT, PLEASANT.
--- NOTE | 2020-01-31 21:00 | NUR ---
PT TRANSFERRED FROM ICU. REPORT FROM ALEJA ALBERT. PT IS STABLE. JAVON RYDER'D. PENDING TO VOID AT 0200 01/31. REQUIRES ASSISTANCE UP TO CHAIR. ABLE TO TAKE MEDICATIONS WELL.
[2020-01-31] MEDS: ATORVASTATIN CALCIUM 20 MG TABLET PO SCH (21:14)
[2020-02-01 03:00] VITALS: BP_SYST 100; BP_SYST 110; BP_DIAS 50
[2020-02-01 05:02] LABS: BASOPHILS % (AUTO) 0.2 % (0.0-5.0); EOSINOPHILS % (AUTO) 0.9 % (0.0-8.0); HEMATOCRIT 25.4 % (36-48); LYMPHOCYTES % (AUTO) 17.2 % (21.0-51.0); MEAN CORPUSCULAR HEMOGLOBIN 28.7 pg (27.0-33.0); MEAN CORPUSCULAR HGB CONC 31.9 g/dL (32.0-36.0); MEAN CORPUSCULAR VOLUME 90.1 fL (79-99); MONOCYTES % (AUTO) 5.3 % (3.0-13.0); PLATELET COUNT (AUTO) 79 K/uL (130-400); RED BLOOD CELL COUNT(AUTO) 2.82 MIL/uL (4.00-5.50); WHITE BLOOD COUNT (AUTO) 11.7 K/uL (4.8-10.8)
[2020-02-01 05:23] LABS: CREATININE 0.7 mg/dL (0.5-1.5); POTASSIUM 3.7 mmol/L (3.5-5.1)
[2020-02-01] MEDS: LEVOTHYROXINE 50 MCG TABLET PO SCH (06:14)
[2020-02-01] MEDS: METOPROLOL TARTRATE 25 MG TAB PO SCH ×5 (06:14→21:00)
[2020-02-01] MEDS: INSULIN HUMULIN R 100 UNIT/ML 3ML SQ SCH ×4 (06:40→20:55)
[2020-02-01 07:30] VITALS: BP 120/56
[2020-02-01] MEDS: FUROSEMIDE 10 MG/ML 2ML VIAL IV SCH ×2 (09:26→20:40)
[2020-02-01] MEDS: ASPIRIN 81 MG EC TAB PO SCH (09:26)
--- NOTE | 2020-02-01 09:43 | NUR ---
DC PLAN VISITED WITH PATIENT. GOT KAT FOR [facility] NOT ACCEPTING PATIENTS. SPOKE TO PATIENT AGAIN SAID OKAY TO [facility]. KAT COSIGNED BY NURSING STAFF. INFO SENT TO FACILITY. ANNIE DONE AND SENT. WILL GO VIA FACILITY VAN. Addendum: 02/04/20 at 0945 by HAMIDA CHONG RN CM Amended: Links added.
[2020-02-01] MEDS: ENOXAPARIN SODIUM 30 MG/0.3 ML SQ SCH (09:46)
[2020-02-01] MEDS: POTASSIUM CHLORIDE 20MEQ/100ML 100 ML IV PRN (10:25)
--- NOTE | 2020-02-01 11:04 | NUR ---
DC PLAN PATIENT STILL ON ASKED RESPIRATORY TO WEAN OFF. SENT MESSAGE TO PATRICIA BURLESON FOR DR. UNDERWOOD TO SEE IF THEY WANT SNF. PATIENT ONLY DOING TRANSFER WITH PHYSICAL THERAPY. Addendum: 02/01/20 at 1106 by HAMIDA CHONG RN CM Amended: Links added.
[2020-02-01 11:29] VITALS: BP 102/43
--- NOTE | 2020-02-01 11:40 | NUR ---
MT REPORTED THAT PATIENT CONVERTED TO AFIB 120-150'S NON-SUSTAINED. PATIENT DENIES C/P NOR SHORTNESS OF BREATH. ASSISTED HER BACK TO BED. EKG DONE. PAGED DR. JOHNSTON.
--- NOTE | 2020-02-01 11:55 | NUR ---
DR. JOHNSTON CALLED BACK AND REPORTED TO ARRHYTHMIA. ORDERED FOR AMIODARONE PROTOCOL TO BE STARTED.
[2020-02-01] MEDS ORDERED: AMIODARONE HCL 360 MG in DEXTROSE 5%-WATER 200 ML IV SCH (12:15)
[2020-02-01] MEDS ORDERED: AMIODARONE HCL 450 MG in DEXTROSE 5%-WATER 250 ML IV SCH (12:15)
[2020-02-01] MEDS ORDERED: AMIODARONE HCL 900 MG in DEXTROSE 5%-WATER 500 ML IV SCH (12:15)
[2020-02-01] MEDS ORDERED: AMIODARONE HCL 150 MG in DEXTROSE 5%-WATER 100 ML IV SCH (12:15)
--- NOTE | 2020-02-01 14:56 | NUR ---
PATIENT CONVERTED BACK TO SINUS RHYTHM.
[2020-02-01 16:00] VITALS: BP 91/44
--- NOTE | 2020-02-01 17:34 | NUR ---
[facility] CALLED PATIENT ACCEPTED. DONOVAN VALENCIA, DONE AND IN CHART. WILL GO VIA FACILITY VAN. Addendum: 02/01/20 at 1735 by HAMIDA CHONG RN CM Amended: Links added.
--- NOTE | 2020-02-01 18:39 | NUR ---
D/C DISPOSITION PATIENT HAS BEEN ACCEPTED TO [facility]. PATIENT'S DAUGHTER WEST AND SON BREANN AND BOTH WOULD LIKE TO SPEAK WITH NEWSPAPER ILLUSTRATOR THEY PREFER PATIENT TO BE DISCHARGED TO [facility] AND NOT [facility]. HAMIDA IS NOT AVAILABLE ANYMORE AT THIS TIME. WILL ENDORSE THIS TO RECEIVING NURSE. BREANN OR WEST REQUESTED TO BE CONTACTED TOMORROW MORNING BY NEWSPAPER ILLUSTRATOR ABOUT THIS CONCERN.
[2020-02-01 19:00] VITALS: BP 99/60
[2020-02-01] MEDS: ATORVASTATIN CALCIUM 20 MG TABLET PO SCH (20:41)
[2020-02-01 23:00] VITALS: BP 82/46
[2020-02-02 03:00] VITALS: BP 98/52
[2020-02-02] MEDS: INSULIN HUMULIN R 100 UNIT/ML 3ML SQ SCH ×3 (06:00→16:58)
[2020-02-02] MEDS: LEVOTHYROXINE 50 MCG TABLET PO SCH (06:37)
[2020-02-02 07:18] VITALS: BP 92/48
[2020-02-02] MEDS: ASPIRIN 81 MG EC TAB PO SCH (08:42)
[2020-02-02] MEDS: FUROSEMIDE 10 MG/ML 2ML VIAL IV SCH (08:45)
[2020-02-02] MEDS: ENOXAPARIN SODIUM 30 MG/0.3 ML SQ SCH (08:46)
[2020-02-02] MEDS ORDERED: AMIODARONE HCL 200 MG TABLET PO SCH (09:00)
[2020-02-02] MEDS ORDERED: METOPROLOL TARTRATE 25 MG TAB PO SCH (09:00)
--- NOTE | 2020-02-02 10:44 | NUR ---
CM NOTE/[facility] CM spoke to patient, son named Bull, and daughter Annette regarding d/c planning. All in agreement for referral to be sent to [facility]. CM explained that referral will be sent, but cannot guarantee patient will be accepted over the weekend. Explained that insurance will need to be contacted. Verbalized understanding. CM updated nursing. Aware of d/c planning changes. CM notified Lamont with [facility] of referral and possible d/c today if accepted. CM to f/u.
[2020-02-02 11:24] VITALS: BP 90/50
--- NOTE | 2020-02-02 13:31 | NUR ---
RECEIVED CALL FROM VLADIMIR SABILLON LVN AT [facility] FOR PT. EVALUATION. QUESTIONS ANSWERED AND INFORMATION PROVIDED.
[2020-02-02 15:16] VITALS: BP 99/50
--- NOTE | 2020-02-02 16:41 | NUR ---
JER KHAN CM spoke to Bee with [facility]. [facility] pt is accepted and can transfer today. Notified that transport will be via EMS. CM notified nursing. CM to arrange EMS. Addendum: 02/02/20 at 1646 by HEVER STRAUSS CM Amended: Links added.
--- NOTE | 2020-02-02 18:04 | NUR ---
REPORT TO KATHY STUBBS RN AT [facility].
--- NOTE | 2020-02-02 18:20 | NUR ---
HL REMOVED, CATHETER INTACT. DISCHARGE INSTRUCTIONS GIVEN, VERBALIZED UNDERSTANDING.
[2020-02-05] MEDS ORDERED: AMIODARONE HCL 200 MG TABLET PO SCH (09:00)
== END 2020-02-02 19:20 | DRG 235 ==
LOC: 2CV 05:47 → EDSTATUS 08:00 → 2BH 01-30 19:52 → 2AH 01-31 20:14
PROVIDERS: ADMIT Thoracic Surgery (Cardiothoracic Vascular Surgery); ATTEND Thoracic Surgery (Cardiothoracic Vascular Surgery)
PROC: 5A1221Z Performance of Cardiac Output, Continuous (ICD-10-PCS; 2020-01-28)
PROC: B246ZZ4 Ultrasonography of Right and Left Heart, Transesophageal (ICD-10-PCS; 2020-01-28)
PROC: 5A1945Z Respiratory Ventilation, 24-96 Consecutive Hours (ICD-10-PCS; 2020-01-28)
PROC: 0BH17EZ Insertion of Endotracheal Airway into Trachea, Via Natural or Artificial Opening (ICD-10-PCS; 2020-01-28)
PROC: 05HY33Z Insertion of Infusion Device into Upper Vein, Percutaneous Approach (ICD-10-PCS; 2020-01-28)
PROC: 02100Z9 Bypass Coronary Artery, One Artery from Left Internal Mammary, Open Approach (ICD-10-PCS; principal; 2020-01-28 08:00)
PROC: 021209W Bypass Coronary Artery, Three Arteries from Aorta with Autologous Venous Tissue, Open Approach (ICD-10-PCS; 2020-01-28 08:00)
PROC: 06BQ4ZZ Excision of Left Saphenous Vein, Percutaneous Endoscopic Approach (ICD-10-PCS; 2020-01-28 08:00)
PROC: 5A02110 Assistance with Cardiac Output using Balloon Pump, Intermittent (ICD-10-PCS; 2020-01-28 08:00)
PROC: 30233N1 Transfusion of Nonautologous Red Blood Cells into Peripheral Vein, Percutaneous Approach (ICD-10-PCS; 2020-01-29)
DX: I25.10 Atherosclerotic heart disease of native coronary artery without angina pectoris (principal); I49.01 Ventricular fibrillation; I34.0 Nonrheumatic mitral (valve) insufficiency; D63.8 Anemia in other chronic diseases classified elsewhere; E03.9 Hypothyroidism, unspecified; E11.22 Type 2 diabetes mellitus with diabetic chronic kidney disease; E11.40 Type 2 diabetes mellitus with diabetic neuropathy, unspecified; E78.00 Pure hypercholesterolemia, unspecified; E78.5 Hyperlipidemia, unspecified; E87.70 Fluid overload, unspecified; G40.409 Other generalized epilepsy and epileptic syndromes, not intractable, without status epilepticus; H91.90 Unspecified hearing loss, unspecified ear; I12.9 Hypertensive chronic kidney disease with stage 1 through stage 4 chronic kidney disease, or unspecified chronic kidney disease; I48.0 Paroxysmal atrial fibrillation; N18.3 Chronic kidney disease, stage 3 (moderate); Z79.02 Long term (current) use of antithrombotics/antiplatelets; Z79.82 Long term (current) use of aspirin; Z79.899 Other long term (current) drug therapy
CPT/HCPCS: 36415; 36430; 70450; 71045; 71046; 80048; 80053; 82330; 82435; 82803; 82947; 82948; 83036; 83605; 83735; 84100; 84132; 84295; 85018; 85025; 85027; 85347; 85610; 85730; 86850; 86900; 86901; 86922; 93005; 93313; 93318; 94002; 94003; 97039; A4357; A7048; G0378; J0171; J0282; J0461; J0610; J0690; J0697; J1644; J1650; J1815; J1885; J1940; J2001; J2250; J2405; J2440; J2704; J2720; J3010; J3475; J3480; J3490; J7030; J7040; J7050; J7060; J7120; P9016; P9045

== ENCOUNTER → 2020-03-20 | Outpatient (CLI) | payer OTHER, MEDICARE ==
[~2020-03-20] MED LIST changes: +ACET650T7 PO; -AMINOCAPROIC ACID 15,000 MG in SODIUM CHLORIDE 0.9% 500ML 420 ML IV PRN; -EPINEPHRINE 10 MG in SODIUM CHLORIDE 0.9% 240 ML IV PRN; -NOREPINEPHRINE BITARTRATE 8 MG in DEXTROSE 5%-WATER 250 ML IV PRN
--- NOTE | 2020-03-20 11:35 | NUR ---
MBSS COMPLETED. NO ASPIRATION AT THIS TIME. RECOMMEND REGULAR (NO MIXED TEXTURES)SMALL BITES AND THIN LIQUIDS SMALL SIPS TOLERATED. HUNTING SALES LEADER REVIEWED RESULTS WITH Pt. Pt WAS EDUCATED ON RISKS AND CONSEQUENCES OF ASPIRATION. ALL QUESTIONS ANSWERED AT THIS TIME. Addendum: 03/20/[address]ERTO MENDOZA Amended: Links added.
== END | disposition home or self-care (01) ==
LOC: RAH 10:33
PROVIDERS: ATTEND Family Medicine
DX: R13.10 Dysphagia, unspecified (principal); I63.9 Cerebral infarction, unspecified
CPT/HCPCS: 74230; 92611

== ENCOUNTER → 2020-05-13 | Outpatient (CLI) | payer OTHER, MEDICARE ==
[~2020-05-13] MED LIST changes: +ACET-2521 PO; -ACET650T7 PO
== END | disposition home or self-care (01) ==
LOC: RAH 08:28
PROVIDERS: ATTEND Internal Medicine Gastroenterology
DX: K82.8 Other specified diseases of gallbladder (principal)
CPT/HCPCS: 76700

== ENCOUNTER → 2020-09-04 | Outpatient (CLI) | payer OTHER, MEDICARE | END | disposition home or self-care (01) | LOC: OIH 06-18 10:10 | PROVIDERS: ATTEND Internal Medicine Cardiovascular Disease | DX: I63.9 Cerebral infarction, unspecified (principal); Z04.3 Encounter for examination and observation following other accident; J32.0 Chronic maxillary sinusitis | CPT/HCPCS: 70450 ==

== ENCOUNTER → 2021-06-02 | Outpatient (CLI) | payer OTHER, MEDICARE ==
[~2021-06-02] MED LIST changes: -ISOS30TA6 PO; +ISOS30TA92 PO; -LISI-613 PO; +LISI20TA24 PO
== END | disposition home or self-care (01) ==
LOC: RAH 08:25
PROVIDERS: ATTEND Internal Medicine Gastroenterology
DX: K80.20 Calculus of gallbladder without cholecystitis without obstruction (principal); I70.0 Atherosclerosis of aorta
CPT/HCPCS: 76700; 93975

== ENCOUNTER → 2021-11-30 | Outpatient (CLI) | payer OTHER, MEDICARE ==
[~2021-11-30] VITALS: Ht 149.9 cm; Wt 50.3 kg
[~2021-11-30] MED LIST changes: +REGADENOSON 0.4 MG/5 ML PF SYG IVP SCH
== END | disposition home or self-care (01) ==
LOC: SHCH 09:40
PROVIDERS: ATTEND Internal Medicine Cardiovascular Disease
DX: I20.9 Angina pectoris, unspecified (principal); Z95.1 Presence of aortocoronary bypass graft
CPT/HCPCS: 78452; 93017; 96374; A9500 ×2; J2785

== ENCOUNTER → 2022-03-05 | Outpatient (CLI) | payer OTHER, MEDICARE ==
[~2022-03-05] MED LIST changes: -REGADENOSON 0.4 MG/5 ML PF SYG IVP SCH
[2022-03-05 12:20] LABS: BASOPHILS % (AUTO) 0.6 % (0.0-5.0); HEMATOCRIT 27.7 % (36-48); LYMPHOCYTES % (AUTO) 12.1 % (21.0-51.0); MEAN CORPUSCULAR HEMOGLOBIN 28.7 pg (27.0-33.0); MEAN CORPUSCULAR HGB CONC 34.3 g/dL (32.0-36.0); MEAN CORPUSCULAR VOLUME 83.7 fL (79-99); MONOCYTES % (AUTO) 7.3 % (3.0-13.0); NEUTROPHILS % (AUTO) 75.3 % (40.0-77.0); PLATELET COUNT (AUTO) 245 K/uL (130-400); RED BLOOD CELL COUNT(AUTO) 3.31 MIL/uL (4.00-5.50); RED CELL DISTRIBUTION WIDTH 15.5 % (11.0-15.5); WHITE BLOOD COUNT (AUTO) 12.6 K/uL (4.8-10.8)
[2022-03-05 12:36] LABS: ALBUMIN 3.2 g/dL (3.5-5.0); BILIRUBIN,TOTAL 0.4 mg/dL (0.2-1.0); CREATININE 0.7 mg/dL (0.5-1.5); POTASSIUM 5.2 mmol/L (3.5-5.1); TOTAL PROTEIN, SERUM 7.8 g/dL (6.0-8.3)
[2022-03-05 12:43] LABS: INR 0.97 (0.85-1.15); PROTHROMBIN TIME 10.6 SEC (9.6-11.6)
[2022-03-05 12:44] LABS: PARTIAL THROMBOPLASTIN TIME 27.6 SEC (26.3-35.5)
== END | disposition home or self-care (01) ==
LOC: LAB 08:49
PROVIDERS: ATTEND Internal Medicine Cardiovascular Disease
DX: I12.9 Hypertensive chronic kidney disease with stage 1 through stage 4 chronic kidney disease, or unspecified chronic kidney disease (principal); E11.22 Type 2 diabetes mellitus with diabetic chronic kidney disease; N18.31 Chronic kidney disease, stage 3a; I25.10 Atherosclerotic heart disease of native coronary artery without angina pectoris; Z79.82 Long term (current) use of aspirin; Z79.899 Other long term (current) drug therapy
CPT/HCPCS: 36415; 80053; 85025; 85610; 85730

== ENCOUNTER 2022-04-21 13:07 | Emergency (ER) | payer OTHER, MEDICARE ==
[~2022-04-21] VITALS: Ht 149.9 cm; Wt 56.7 kg
[2022-04-21 14:06] LABS: BASOPHILS % (AUTO) 0.7 % (0.0-5.0); EOSINOPHILS % (AUTO) 2.2 % (0.0-8.0); HEMATOCRIT 31.5 % (36-48); LYMPHOCYTES % (AUTO) 11.4 % (21.0-51.0); MEAN CORPUSCULAR HEMOGLOBIN 29.6 pg (27.0-33.0); MEAN CORPUSCULAR HGB CONC 33.3 g/dL (32.0-36.0); MEAN CORPUSCULAR VOLUME 88.7 fL (79-99); MONOCYTES % (AUTO) 5.7 % (3.0-13.0); NEUTROPHILS % (AUTO) 79.6 % (40.0-77.0); PLATELET COUNT (AUTO) 258 K/uL (130-400); RED BLOOD CELL COUNT(AUTO) 3.55 MIL/uL (4.00-5.50); WHITE BLOOD COUNT (AUTO) 9.1 K/uL (4.8-10.8)
[2022-04-21 14:20] LABS: CREATININE 0.8 mg/dL (0.5-1.5); POTASSIUM 4.9 mmol/L (3.5-5.1)
[2022-04-21 14:28] LABS: ALBUMIN 3.6 g/dL (3.5-5.0); BILIRUBIN,TOTAL 0.4 mg/dL (0.2-1.0); TOTAL PROTEIN, SERUM 8.3 g/dL (6.0-8.3)
[2022-04-21 14:58] LABS: APPEARANCE,URINE CLEAR (CLEAR); BILIRUBIN,URINE NEGATIVE (NEGATIVE); COLOR,URINE YELLOW (YELLOW); GLUCOSE, URINE (UA) NEGATIVE (NEGATIVE); KETONES,URINE NEGATIVE (NEGATIVE); LEUKOCYTE ESTERASE ,URINE MODERATE (NEGATIVE); NITRATE,URINE NEGATIVE (NEGATIVE); OCCULT BLOOD,URINE SMALL (NEGATIVE); PH,URINE 6.5 (5.0-8.0); PROTEIN,URINE NEGATIVE (NEGATIVE); UROBILINOGEN,URINE 0.2 mg/dL (0.2-1.0)
[2022-04-21 14:59] LABS: INR 1.02 (0.85-1.15); PROTHROMBIN TIME 11.1 SEC (9.6-11.6)
[2022-04-21 15:07] LABS: BACTERIA,URINE Few /HPF (None Seen); RBC,URINE 0-1 /HPF (0-1); SQUAMOUS EPITHELIAL CELL,UR Few /HPF (0-2); TRANSITIONAL EPI CELLS,URINE Rare /HPF (None Seen)
[2022-04-21] MEDS ORDERED: CEPH500B PO (15:37)
[2022-04-21] MEDS ORDERED: CEFTRIAXONE 1G VIAL IM ONE (16:00)
[2022-04-21 16:12] VITALS: BP 122/54
== END 2022-04-21 16:14 | disposition home or self-care (01) ==
LOC: EDH 13:07
DX: N39.0 Urinary tract infection, site not specified (principal); K76.0 Fatty (change of) liver, not elsewhere classified; E11.9 Type 2 diabetes mellitus without complications; E78.00 Pure hypercholesterolemia, unspecified; I10 Essential (primary) hypertension; Z79.899 Other long term (current) drug therapy; Z79.82 Long term (current) use of aspirin; Z79.4 Long term (current) use of insulin; Z98.890 Other specified postprocedural states
CPT/HCPCS: 36415; 70450; 71045; 76705; 80053; 81001; 83690; 84484; 85025; 85610; 87088; 93005; 96372; 99285; J0696

== ENCOUNTER → 2022-08-20 | Outpatient (CLI) | payer OTHER, MEDICARE ==
[~2022-08-20] MED LIST changes: +CEPH500B PO
[2022-08-20 12:26] LABS: BASOPHILS % (AUTO) 0.5 % (0.0-5.0); EOSINOPHILS % (AUTO) 3.5 % (0.0-8.0); HEMATOCRIT 30.9 % (36-48); LYMPHOCYTES % (AUTO) 22.7 % (21.0-51.0); MEAN CORPUSCULAR HEMOGLOBIN 29.9 pg (27.0-33.0); MEAN CORPUSCULAR HGB CONC 32.4 g/dL (32.0-36.0); MEAN CORPUSCULAR VOLUME 92.5 fL (79-99); MONOCYTES % (AUTO) 8.8 % (3.0-13.0); NEUTROPHILS % (AUTO) 64.1 % (40.0-77.0); PLATELET COUNT (AUTO) 204 K/uL (130-400); RED BLOOD CELL COUNT(AUTO) 3.34 MIL/uL (4.00-5.50); RED CELL DISTRIBUTION WIDTH 14.6 % (11.0-15.5); WHITE BLOOD COUNT (AUTO) 8.4 K/uL (4.8-10.8)
[2022-08-20 13:02] LABS: CREATININE 0.6 mg/dL (0.5-1.5); POTASSIUM 4.8 mmol/L (3.5-5.1); THYROID STIMULATING HORMONE 2.66 uIU/mL (0.36-3.74)
== END | disposition home or self-care (01) ==
LOC: LAB 08:38
PROVIDERS: ATTEND Internal Medicine Cardiovascular Disease
DX: I10 Essential (primary) hypertension (principal); Z79.899 Other long term (current) drug therapy
CPT/HCPCS: 36415; 80048; 82306; 84443; 85025

== ENCOUNTER → 2022-11-19 | Outpatient (CLI) | payer OTHER, MEDICARE ==
[2022-11-19 12:38] LABS: CREATININE 0.7 mg/dL (0.5-1.5); POTASSIUM 4.5 mmol/L (3.5-5.1)
== END | disposition home or self-care (01) ==
LOC: LAB 10:14
PROVIDERS: ATTEND Internal Medicine Cardiovascular Disease
DX: I10 Essential (primary) hypertension (principal); E78.5 Hyperlipidemia, unspecified; E11.9 Type 2 diabetes mellitus without complications
CPT/HCPCS: 36415; 80048; 83880

== ENCOUNTER → 2022-11-19 | Outpatient (CLI) | payer OTHER, MEDICARE ==
[~2022-11-19] MED LIST changes: +FURO-152 PO
== END | disposition home or self-care (01) ==
LOC: RAH 07:40
PROVIDERS: ATTEND Internal Medicine Gastroenterology
DX: K30 Functional dyspepsia (principal); I10 Essential (primary) hypertension; E78.5 Hyperlipidemia, unspecified; E11.9 Type 2 diabetes mellitus without complications; R68.81 Early satiety
CPT/HCPCS: 78264; 80048; 83880; 36415; A9541

== ENCOUNTER → 2022-12-09 | Outpatient (CLI) | payer OTHER, MEDICARE | END | disposition home or self-care (01) | LOC: SHCH 15:15 | PROVIDERS: ATTEND Internal Medicine Cardiovascular Disease | DX: I08.1 Rheumatic disorders of both mitral and tricuspid valves (principal); I42.9 Cardiomyopathy, unspecified; E11.9 Type 2 diabetes mellitus without complications; E78.5 Hyperlipidemia, unspecified | CPT/HCPCS: 93306 ==

== ENCOUNTER → 2023-01-21 | Outpatient (CLI) | payer OTHER, MEDICARE ==
[~2023-01-21] MED LIST changes: -ATOR20TA65 PO; +ATOR40TA69 PO; +ATOR40TA71 PO; -CEPH500B PO; +EMPA10TA PO; -FURO-152 PO; +FURO40TA5 PO; -GABA-529 PO; -HUMLIS7525 SQ; -ISOS30TA92 PO; -LEVO50TA11 PO; +LEVO75 PO; +LEVO75CA5 PO; -LISI20TA24 PO; +METO10TA3 PO; +METO5SOL23 PO; +METO5TAB7 PO; -NITR0.4T50 SL; +PANT40TA54 PO; +REPA2TAB8 PO; +RIVA2.5T PO; +SACU1TAB PO; +SPIR50TA5 PO
== END | disposition home or self-care (01) ==
LOC: SHCH 14:59
PROVIDERS: ATTEND Internal Medicine Cardiovascular Disease
DX: I11.0 Hypertensive heart disease with heart failure (principal); I50.20 Unspecified systolic (congestive) heart failure; I08.8 Other rheumatic multiple valve diseases; E78.5 Hyperlipidemia, unspecified; E11.9 Type 2 diabetes mellitus without complications; Z95.1 Presence of aortocoronary bypass graft
CPT/HCPCS: 93306

== ENCOUNTER 2023-02-01 18:52 | Inpatient (IN) | payer OTHER, MEDICARE ==
[~2023-02-01] VITALS: Ht 147.3 cm; Wt 47.6 kg
[~2023-02-01 18:52] MED LIST changes: -ATOR40TA69 PO; -FURO40TA5 PO; -LEVO75CA5 PO; +METO2.5T2 PO; -METO5SOL23 PO; -METO5TAB7 PO; -SACU1TAB PO; +SPIR25TA6 PO; -SPIR50TA5 PO
[2023-02-01 20:07] LABS: BASOPHILS % (AUTO) 0.1 % (0.0-5.0); EOSINOPHILS % (AUTO) 2.6 % (0.0-8.0); HEMATOCRIT 40.9 % (36-48); LYMPHOCYTES % (AUTO) 8.7 % (21.0-51.0); MEAN CORPUSCULAR HEMOGLOBIN 29.4 pg (27.0-33.0); MEAN CORPUSCULAR HGB CONC 32.5 g/dL (32.0-36.0); MEAN CORPUSCULAR VOLUME 90.3 fL (79-99); MONOCYTES % (AUTO) 5.3 % (3.0-13.0); NEUTROPHILS % (AUTO) 82.8 % (40.0-77.0); PLATELET COUNT (AUTO) 115 K/uL (130-400); RED BLOOD CELL COUNT(AUTO) 4.53 MIL/uL (4.00-5.50); RED CELL DISTRIBUTION WIDTH 21.4 % (11.0-15.5); WHITE BLOOD COUNT (AUTO) 11.3 K/uL (4.8-10.8)
[2023-02-01 20:16] LABS: CREATININE 0.9 mg/dL (0.5-1.5); POTASSIUM 4.1 mmol/L (3.5-5.1)
[2023-02-01 20:25] LABS: ALBUMIN 2.8 g/dL (3.5-5.0); TOTAL PROTEIN, SERUM 7.2 g/dL (6.0-8.3)
[2023-02-01] MEDS ORDERED: CEFTRIAXONE 2GM VIAL IVP ONE (22:00)
[2023-02-01] MEDS ORDERED: ONDANSETRON 4MG INJ IVP PRN (23:00)
[2023-02-01] MEDS ORDERED: LACTULOSE 20 GM/30 ML UDCUP PO PRN (23:00)
[2023-02-01] MEDS ORDERED: HYDRALAZINE 20MG/ML VIAL IV PRN (23:00)
[2023-02-01] MEDS ORDERED: CLONIDINE HCL 0.1 MG TABLET PO PRN (23:00)
[2023-02-01] MEDS ORDERED: LABETALOL 20MG SYG IV PRN (23:00)
[2023-02-01] MEDS ORDERED: ACETAMINOPHEN 650 MG SUPPOSITORY RC PRN (23:00)
[2023-02-01] MEDS ORDERED: DOCUSATE SODIUM 100 MG CAP PO PRN (23:00)
[2023-02-01] MEDS ORDERED: IPRATROPIUM 0.5 MG/2.5 ML INH IH ONE (23:01)
[2023-02-01 23:20] LABS: ABG BASE EXCESS -0.3 mmol/L (-2.0-3.0); ABG HCO3 21.6 mmol/L (21.0-28.0); ABG OXYGEN SATURATION 88.1 % (95.0-99.0); ABG PCO2 29 mmHg (32-45)
[2023-02-02 05:35] VITALS: BP 109/69
[2023-02-02] MEDS ORDERED: METO-408 PO (05:49)
[2023-02-02] MEDS ORDERED: ATOR40TA69 PO (05:49)
[2023-02-02] MEDS: INSULIN HUMULIN R 100 UNIT/ML 3ML SQ SCH ×4 (06:17→20:50)
[2023-02-02 07:01] LABS: BASOPHILS % (AUTO) 0.2 % (0.0-5.0); EOSINOPHILS % (AUTO) 2.5 % (0.0-8.0); HEMATOCRIT 39.6 % (36-48); LYMPHOCYTES % (AUTO) 10.8 % (21.0-51.0); MEAN CORPUSCULAR HEMOGLOBIN 28.8 pg (27.0-33.0); MEAN CORPUSCULAR HGB CONC 32.3 g/dL (32.0-36.0); MEAN CORPUSCULAR VOLUME 89.2 fL (79-99); MONOCYTES % (AUTO) 5.5 % (3.0-13.0); NEUTROPHILS % (AUTO) 80.6 % (40.0-77.0); PLATELET COUNT (AUTO) 100 K/uL (130-400); RED BLOOD CELL COUNT(AUTO) 4.44 MIL/uL (4.00-5.50); RED CELL DISTRIBUTION WIDTH 21.2 % (11.0-15.5); WHITE BLOOD COUNT (AUTO) 9.6 K/uL (4.8-10.8)
[2023-02-02] MEDS: IPRATROPIUM 0.5 MG/2.5 ML INH IH SCH ×4 (07:06→18:41)
[2023-02-02 07:15] LABS: CREATININE 0.8 mg/dL (0.5-1.5); MAGNESIUM 1.8 mg/dL (1.80-2.40); PHOSPHORUS 3.6 mg/dL (2.5-4.9); POTASSIUM 4.1 mmol/L (3.5-5.1)
[2023-02-02 07:25] VITALS: BP 103/57
[2023-02-02 11:10] VITALS: BP 102/59
[2023-02-02] MEDS: DOXYCYCLINE 100MG+NS 250ML IV SCH ×2 (12:24→20:46)
[2023-02-02] MEDS: FUROSEMIDE 40MG VIAL IV SCH ×2 (12:24→20:47)
[2023-02-02] MEDS: METOCLOPRAMIDE 10 MG TABLET PO SCH ×2 (14:00→20:48)
[2023-02-02 15:20] VITALS: BP 99/51
[2023-02-02 20:05] VITALS: BP 111/64
[2023-02-02] MEDS: ATORVASTATIN 40 MG TABLET PO SCH (20:47)
[2023-02-02] MEDS: RIVAROXABAN 2.5 MG TABLET PO SCH (20:48)
[2023-02-02] MEDS: PANTOPRAZOLE 40 MG TAB DR PO SCH (20:48)
[2023-02-02 23:24] VITALS: BP 105/56
[2023-02-03] MEDS: IPRATROPIUM 0.5 MG/2.5 ML INH IH SCH ×4 (00:10→19:08)
[2023-02-03 03:26] VITALS: BP 108/60
[2023-02-03 05:15] LABS: BASOPHILS % (AUTO) 0.3 % (0.0-5.0); EOSINOPHILS % (AUTO) 1.6 % (0.0-8.0); HEMATOCRIT 41.7 % (36-48); LYMPHOCYTES % (AUTO) 7.2 % (21.0-51.0); MEAN CORPUSCULAR HEMOGLOBIN 29.1 pg (27.0-33.0); MEAN CORPUSCULAR HGB CONC 32.1 g/dL (32.0-36.0); MEAN CORPUSCULAR VOLUME 90.7 fL (79-99); NEUTROPHILS % (AUTO) 85.3 % (40.0-77.0); PLATELET COUNT (AUTO) 114 K/uL (130-400); RED CELL DISTRIBUTION WIDTH 21.5 % (11.0-15.5); WHITE BLOOD COUNT (AUTO) 11.5 K/uL (4.8-10.8)
[2023-02-03 05:20] LABS: INR 1.37 (0.85-1.15); PROTHROMBIN TIME 14.7 SEC (9.6-11.6)
[2023-02-03 05:22] LABS: PARTIAL THROMBOPLASTIN TIME 29.7 SEC (26.3-35.5)
[2023-02-03] MEDS: INSULIN HUMULIN R 100 UNIT/ML 3ML SQ SCH ×4 (05:22→20:49)
[2023-02-03 05:24] LABS: B-TYPE NATRIURETIC PEPTIDE 3550 pg/mL (0-100)
[2023-02-03 05:27] LABS: ALBUMIN 2.8 g/dL (3.5-5.0); CREATININE 1.1 mg/dL (0.5-1.5); POTASSIUM 3.3 mmol/L (3.5-5.1); TOTAL PROTEIN, SERUM 7.4 g/dL (6.0-8.3)
[2023-02-03 07:20] VITALS: BP 102/57
[2023-02-03] MEDS ORDERED: METOLAZONE 2.5 MG TABLET PO SCH (09:00)
[2023-02-03] MEDS: FUROSEMIDE 40MG VIAL IV SCH ×2 (09:17→20:48)
[2023-02-03] MEDS: METOPROLOL SUCCINATE 25 MG TAB.SR.24H PO SCH (09:17)
[2023-02-03] MEDS: ASPIRIN 81 MG EC TAB PO SCH (09:17)
[2023-02-03] MEDS: PANTOPRAZOLE 40 MG TAB DR PO SCH ×2 (09:18→15:55)
[2023-02-03] MEDS: DOXYCYCLINE 100MG+NS 250ML IV SCH ×2 (09:18→20:48)
[2023-02-03] MEDS: RIVAROXABAN 2.5 MG TABLET PO SCH ×2 (09:18→20:48)
[2023-02-03] MEDS: METOCLOPRAMIDE 10 MG TABLET PO SCH ×3 (09:18→20:48)
[2023-02-03] MEDS: SPIRONOLACTONE 25 MG TAB PO SCH ×2 (09:18→20:48)
[2023-02-03] MEDS: LEVOTHYROXINE 75 MCG TABLET PO SCH (09:21)
[2023-02-03] MEDS: ACETAMINOPHEN 325 MG TAB PO PRN (11:12)
[2023-02-03 11:15] VITALS: BP 108/64
[2023-02-03] MEDS ORDERED: SACUBITRIL/VALSARTAN 1 EACH TABLET PO ONE (15:04)
[2023-02-03 15:10] VITALS: BP 98/52
[2023-02-03 20:13] VITALS: BP 104/50
[2023-02-03] MEDS: TEMAZEPAM 15 MG CAPSULE PO PRN (20:48)
[2023-02-03] MEDS: ATORVASTATIN 40 MG TABLET PO SCH (20:48)
[2023-02-03 23:06] VITALS: BP 103/58
[2023-02-04] MEDS: IPRATROPIUM 0.5 MG/2.5 ML INH IH SCH ×5 (00:30→23:19)
[2023-02-04 03:15] VITALS: BP 99/58
[2023-02-04 04:35] LABS: BASOPHILS % (AUTO) 0.3 % (0.0-5.0); EOSINOPHILS % (AUTO) 4.4 % (0.0-8.0); HEMATOCRIT 37.9 % (36-48); LYMPHOCYTES % (AUTO) 8.9 % (21.0-51.0); MEAN CORPUSCULAR HEMOGLOBIN 29.7 pg (27.0-33.0); MEAN CORPUSCULAR HGB CONC 32.7 g/dL (32.0-36.0); MEAN CORPUSCULAR VOLUME 90.7 fL (79-99); MONOCYTES % (AUTO) 5.9 % (3.0-13.0); PLATELET COUNT (AUTO) 98 K/uL (130-400); RED BLOOD CELL COUNT(AUTO) 4.18 MIL/uL (4.00-5.50); RED CELL DISTRIBUTION WIDTH 21.2 % (11.0-15.5)
[2023-02-04 04:49] LABS: ALBUMIN 2.4 g/dL (3.5-5.0); TOTAL PROTEIN, SERUM 6.4 g/dL (6.0-8.3)
[2023-02-04 04:52] LABS: POTASSIUM 2.7 mmol/L (3.5-5.1)
[2023-02-04] MEDS ORDERED: POTASSIUM CHLORIDE 10MEQ/100ML 100 ML IV PRN (05:30)
[2023-02-04] MEDS ORDERED: LIDOCAINE HCL-MPF 1% 2ML VIAL IV PRN (05:30)
[2023-02-04] MEDS ORDERED: POTASSIUM CHLORIDE 10% ELIXIR 20 MEQ/15 ML UDCUP PO PRN (05:30)
[2023-02-04] MEDS: INSULIN HUMULIN R 100 UNIT/ML 3ML SQ SCH ×4 (05:40→20:36)
[2023-02-04] MEDS: PANTOPRAZOLE 40 MG TAB DR PO SCH ×2 (06:33→16:40)
[2023-02-04 07:30] VITALS: BP 106/61
[2023-02-04] MEDS: DOXYCYCLINE 100MG+NS 250ML IV SCH ×2 (10:02→20:35)
[2023-02-04] MEDS: RIVAROXABAN 2.5 MG TABLET PO SCH ×2 (10:02→20:36)
[2023-02-04] MEDS: METOPROLOL SUCCINATE 25 MG TAB.SR.24H PO SCH (10:02)
[2023-02-04] MEDS: SPIRONOLACTONE 25 MG TAB PO SCH ×2 (10:03→20:36)
[2023-02-04] MEDS: LEVOTHYROXINE 75 MCG TABLET PO SCH (10:03)
[2023-02-04] MEDS: ASPIRIN 81 MG EC TAB PO SCH (10:03)
[2023-02-04] MEDS: SACUBITRIL/VALSARTAN 1 EACH TABLET PO SCH (10:03)
[2023-02-04] MEDS: KCL 20 MEQ ERTAB PO PRN ×3 (10:03→16:40)
[2023-02-04] MEDS: FUROSEMIDE 40MG VIAL IV SCH ×2 (10:03→20:36)
[2023-02-04] MEDS: METOCLOPRAMIDE 10 MG TABLET PO SCH ×3 (10:03→20:36)
[2023-02-04 11:15] VITALS: BP 96/59
[2023-02-04 15:30] VITALS: BP 100/58
[2023-02-04 20:00] VITALS: BP 80/49
[2023-02-04] MEDS: ATORVASTATIN 40 MG TABLET PO SCH (20:36)
[2023-02-04] MEDS ORDERED: 0.9%NACL 1000ML 1,000 ML IV SCH (23:30)
[2023-02-05] VITALS (8 sets, daily range): BP systolic 86–131; BP diastolic 50–68
[2023-02-05] MEDS ORDERED: 0.9% NACL 500ML IV.SOLN 500 ML IV SCH
[2023-02-05 05:09] LABS: BASOPHILS % (AUTO) 0.4 % (0.0-5.0); EOSINOPHILS % (AUTO) 2.8 % (0.0-8.0); HEMATOCRIT 37.4 % (36-48); LYMPHOCYTES % (AUTO) 11.3 % (21.0-51.0); MEAN CORPUSCULAR HEMOGLOBIN 29.3 pg (27.0-33.0); MEAN CORPUSCULAR HGB CONC 32.9 g/dL (32.0-36.0); MONOCYTES % (AUTO) 6.3 % (3.0-13.0); NEUTROPHILS % (AUTO) 78.8 % (40.0-77.0); PLATELET COUNT (AUTO) 89 K/uL (130-400); RED CELL DISTRIBUTION WIDTH 21.2 % (11.0-15.5); WHITE BLOOD COUNT (AUTO) 8.2 K/uL (4.8-10.8)
[2023-02-05 05:15] LABS: ALBUMIN 2.5 g/dL (3.5-5.0); CREATININE 0.9 mg/dL (0.5-1.5); POTASSIUM 3.9 mmol/L (3.5-5.1); TOTAL PROTEIN, SERUM 6.4 g/dL (6.0-8.3)
[2023-02-05] MEDS: IPRATROPIUM 0.5 MG/2.5 ML INH IH SCH ×3 (06:42→18:28)
[2023-02-05] MEDS: INSULIN HUMULIN R 100 UNIT/ML 3ML SQ SCH ×5 (07:30→21:00)
[2023-02-05] MEDS: ASPIRIN 81 MG EC TAB PO SCH (08:57)
[2023-02-05] MEDS: METOCLOPRAMIDE 10 MG TABLET PO SCH ×3 (08:57→20:16)
[2023-02-05] MEDS: RIVAROXABAN 2.5 MG TABLET PO SCH ×2 (08:57→20:16)
[2023-02-05] MEDS: PANTOPRAZOLE 40 MG TAB DR PO SCH ×2 (08:57→17:24)
[2023-02-05] MEDS: DOXYCYCLINE 100MG+NS 250ML IV SCH ×2 (08:57→20:15)
[2023-02-05] MEDS: LEVOTHYROXINE 75 MCG TABLET PO SCH (08:57)
[2023-02-05] MEDS: SACUBITRIL/VALSARTAN 1 EACH TABLET PO SCH (11:17)
[2023-02-05] MEDS: METOPROLOL SUCCINATE 25 MG TAB.SR.24H PO SCH (11:17)
[2023-02-05] MEDS ORDERED: ZOSYN 3.375GM +NS 50ML IVPB SCH (14:30)
[2023-02-05] MEDS ORDERED: ZOSYN 3.375GM+NS 50ML 50 ML IVPB SCH (15:00)
[2023-02-05] MEDS ORDERED: 0.9%NACL 50ML IV SCH (15:00)
[2023-02-05] MEDS: FUROSEMIDE 40 MG TABLET PO SCH (17:24)
[2023-02-05] MEDS: ATORVASTATIN 40 MG TABLET PO SCH (20:16)
[2023-02-05] MEDS: ZOSYN 3.375GM+NS 50ML 50 ML IVPB SCH (20:16)
[2023-02-05] MEDS: SPIRONOLACTONE 25 MG TAB PO SCH (21:23)
[2023-02-05] MEDS: TEMAZEPAM 15 MG CAPSULE PO PRN (22:53)
[2023-02-06] MEDS: IPRATROPIUM 0.5 MG/2.5 ML INH IH SCH ×5 (00:12→23:37)
[2023-02-06 03:46] VITALS: BP 90/40
[2023-02-06] MEDS: ZOSYN 3.375GM+NS 50ML 50 ML IVPB SCH ×3 (04:30→22:41)
[2023-02-06 05:07] LABS: HEMATOCRIT 36.2 % (36-48); MEAN CORPUSCULAR HGB CONC 32.9 g/dL (32.0-36.0); MEAN CORPUSCULAR VOLUME 88.1 fL (79-99); PLATELET COUNT (AUTO) 76 K/uL (130-400); RED BLOOD CELL COUNT(AUTO) 4.11 MIL/uL (4.00-5.50); RED CELL DISTRIBUTION WIDTH 21.2 % (11.0-15.5); WHITE BLOOD COUNT (AUTO) 9.1 K/uL (4.8-10.8)
[2023-02-06 05:16] LABS: CREATININE 0.9 mg/dL (0.5-1.5); POTASSIUM 3.6 mmol/L (3.5-5.1)
[2023-02-06 06:15] LABS: B-TYPE NATRIURETIC PEPTIDE 2630 pg/mL (0-100)
[2023-02-06] MEDS: INSULIN HUMULIN R 100 UNIT/ML 3ML SQ SCH ×4 (06:45→20:14)
[2023-02-06 08:00] VITALS: BP 90/50
[2023-02-06] MEDS: METOCLOPRAMIDE 10 MG TABLET PO SCH ×3 (08:15→19:33)
[2023-02-06] MEDS: LEVOTHYROXINE 75 MCG TABLET PO SCH (08:15)
[2023-02-06] MEDS: PANTOPRAZOLE 40 MG TAB DR PO SCH ×2 (08:15→17:46)
[2023-02-06] MEDS: ASPIRIN 81 MG EC TAB PO SCH (08:15)
[2023-02-06] MEDS: METOLAZONE 2.5 MG TABLET PO SCH ×2 (08:15→09:00)
[2023-02-06] MEDS: DOXYCYCLINE 100MG+NS 250ML IV SCH ×2 (08:21→19:33)
[2023-02-06] MEDS: FUROSEMIDE 40 MG TABLET PO SCH ×2 (10:30→17:46)
[2023-02-06] MEDS: RIVAROXABAN 2.5 MG TABLET PO SCH ×2 (10:30→19:33)
[2023-02-06] MEDS: METOPROLOL SUCCINATE 25 MG TAB.SR.24H PO SCH (10:31)
[2023-02-06 14:00] VITALS: BP 87/47
[2023-02-06] MEDS ORDERED: SPIRONOLACTONE 25 MG TAB ONE (14:52)
[2023-02-06] MEDS: SPIRONOLACTONE 25 MG TAB PO SCH ×2 (14:54→19:36)
[2023-02-06 16:00] VITALS: BP 92/58
[2023-02-06] MEDS: SACUBITRIL/VALSARTAN 1 EACH TABLET PO SCH (16:19)
[2023-02-06] MEDS: ATORVASTATIN 40 MG TABLET PO SCH (19:33)
[2023-02-06 20:00] VITALS: BP 81/45
[2023-02-06 23:55] VITALS: BP 90/53
[2023-02-07 04:00] VITALS: BP 86/47
[2023-02-07] MEDS: ZOSYN 3.375GM+NS 50ML 50 ML IVPB SCH ×3 (04:17→22:03)
[2023-02-07 04:53] LABS: BASOPHILS % (AUTO) 0.7 % (0.0-5.0); EOSINOPHILS % (AUTO) 5.7 % (0.0-8.0); HEMATOCRIT 36.7 % (36-48); LYMPHOCYTES % (AUTO) 12.5 % (21.0-51.0); MEAN CORPUSCULAR HEMOGLOBIN 29.4 pg (27.0-33.0); MEAN CORPUSCULAR VOLUME 89.3 fL (79-99); MONOCYTES % (AUTO) 5.2 % (3.0-13.0); NEUTROPHILS % (AUTO) 75.2 % (40.0-77.0); PLATELET COUNT (AUTO) 71 K/uL (130-400); RED BLOOD CELL COUNT(AUTO) 4.11 MIL/uL (4.00-5.50); RED CELL DISTRIBUTION WIDTH 21.2 % (11.0-15.5); WHITE BLOOD COUNT (AUTO) 8.7 K/uL (4.8-10.8)
[2023-02-07 04:56] LABS: INR 1.41 (0.85-1.15); PROTHROMBIN TIME 15.1 SEC (9.6-11.6)
[2023-02-07 04:57] LABS: PARTIAL THROMBOPLASTIN TIME 33.4 SEC (26.3-35.5)
[2023-02-07 05:14] LABS: CREATININE 1.1 mg/dL (0.5-1.5); POTASSIUM 3.7 mmol/L (3.5-5.1)
[2023-02-07] MEDS: METOPROLOL SUCCINATE 25 MG TAB.SR.24H PO SCH (05:34)
[2023-02-07] MEDS: SACUBITRIL/VALSARTAN 1 EACH TABLET PO SCH (05:34)
[2023-02-07] MEDS: PANTOPRAZOLE 40 MG TAB DR PO SCH ×2 (05:34→17:43)
[2023-02-07 05:38] LABS: B-TYPE NATRIURETIC PEPTIDE 1850 pg/mL (0-100)
[2023-02-07] MEDS: INSULIN HUMULIN R 100 UNIT/ML 3ML SQ SCH ×4 (06:08→21:00)
[2023-02-07] MEDS: IPRATROPIUM 0.5 MG/2.5 ML INH IH SCH ×3 (06:30→19:39)
[2023-02-07 07:35] VITALS: BP 92/52
[2023-02-07] MEDS: SPIRONOLACTONE 25 MG TAB PO SCH ×2 (09:00→22:03)
[2023-02-07] MEDS: DOXYCYCLINE 100MG+NS 250ML IV SCH ×2 (11:02→20:10)
[2023-02-07] MEDS: FUROSEMIDE 40 MG TABLET PO SCH ×2 (11:04→17:00)
[2023-02-07] MEDS: METOCLOPRAMIDE 10 MG TABLET PO SCH ×3 (11:05→20:10)
[2023-02-07] MEDS: LEVOTHYROXINE 75 MCG TABLET PO SCH (11:05)
[2023-02-07] MEDS: METOLAZONE 2.5 MG TABLET PO SCH (11:06)
[2023-02-07] MEDS: ASPIRIN 81 MG EC TAB PO SCH (11:07)
[2023-02-07 11:20] VITALS: BP 100/53
[2023-02-07] MEDS: RIVAROXABAN 2.5 MG TABLET PO SCH ×2 (13:34→20:08)
[2023-02-07 16:45] VITALS: BP 97/52
[2023-02-07] MEDS: ATORVASTATIN 40 MG TABLET PO SCH (20:09)
[2023-02-07 21:07] VITALS: BP 94/52
[2023-02-07] MEDS: TEMAZEPAM 15 MG CAPSULE PO PRN (23:14)
[2023-02-08] VITALS (7 sets, daily range): BP systolic 90–104; BP diastolic 48–59
[2023-02-08] MEDS: IPRATROPIUM 0.5 MG/2.5 ML INH IH SCH ×4 (00:34→23:52)
[2023-02-08 04:46] LABS: BASOPHILS % (AUTO) 0.6 % (0.0-5.0); EOSINOPHILS % (AUTO) 5.2 % (0.0-8.0); HEMATOCRIT 36.4 % (36-48); MEAN CORPUSCULAR HEMOGLOBIN 29.2 pg (27.0-33.0); MEAN CORPUSCULAR HGB CONC 32.7 g/dL (32.0-36.0); MEAN CORPUSCULAR VOLUME 89.2 fL (79-99); MONOCYTES % (AUTO) 6.1 % (3.0-13.0); NEUTROPHILS % (AUTO) 73.5 % (40.0-77.0); PLATELET COUNT (AUTO) 74 K/uL (130-400); RED BLOOD CELL COUNT(AUTO) 4.08 MIL/uL (4.00-5.50); RED CELL DISTRIBUTION WIDTH 21.1 % (11.0-15.5); WHITE BLOOD COUNT (AUTO) 7.9 K/uL (4.8-10.8)
[2023-02-08] MEDS: ZOSYN 3.375GM+NS 50ML 50 ML IVPB SCH ×3 (05:15→21:50)
[2023-02-08 05:32] LABS: B-TYPE NATRIURETIC PEPTIDE 2210 pg/mL (0-100)
[2023-02-08] MEDS: PANTOPRAZOLE 40 MG TAB DR PO SCH ×2 (06:19→18:43)
[2023-02-08] MEDS: INSULIN HUMULIN R 100 UNIT/ML 3ML SQ SCH ×4 (06:19→21:00)
[2023-02-08] MEDS: METOPROLOL SUCCINATE 25 MG TAB.SR.24H PO SCH (09:00)
[2023-02-08] MEDS: SPIRONOLACTONE 25 MG TAB PO SCH ×2 (09:00→21:00)
[2023-02-08] MEDS: DOXYCYCLINE 100MG+NS 250ML IV SCH ×2 (11:25→21:49)
[2023-02-08] MEDS: RIVAROXABAN 2.5 MG TABLET PO SCH ×2 (11:25→21:50)
[2023-02-08] MEDS: SACUBITRIL/VALSARTAN 1 EACH TABLET PO SCH (11:25)
[2023-02-08] MEDS: METOCLOPRAMIDE 10 MG TABLET PO SCH ×3 (11:26→21:50)
[2023-02-08] MEDS: FUROSEMIDE 40 MG TABLET PO SCH ×2 (11:26→18:43)
[2023-02-08] MEDS: LEVOTHYROXINE 75 MCG TABLET PO SCH (11:26)
[2023-02-08] MEDS: ASPIRIN 81 MG EC TAB PO SCH (11:26)
[2023-02-08] MEDS: METOLAZONE 2.5 MG TABLET PO SCH (11:27)
[2023-02-08] MEDS: TEMAZEPAM 15 MG CAPSULE PO PRN (21:50)
[2023-02-08] MEDS: ATORVASTATIN 40 MG TABLET PO SCH (21:50)
[2023-02-09] MEDS: ZOSYN 3.375GM+NS 50ML 50 ML IVPB SCH ×2 (04:38→12:58)
[2023-02-09 04:44] VITALS: BP 101/56
[2023-02-09 05:04] LABS: BASOPHILS % (AUTO) 0.7 % (0.0-5.0); EOSINOPHILS % (AUTO) 4.3 % (0.0-8.0); LYMPHOCYTES % (AUTO) 15.3 % (21.0-51.0); MEAN CORPUSCULAR HEMOGLOBIN 28.8 pg (27.0-33.0); MEAN CORPUSCULAR HGB CONC 31.9 g/dL (32.0-36.0); MEAN CORPUSCULAR VOLUME 90.2 fL (79-99); MONOCYTES % (AUTO) 6.9 % (3.0-13.0); NEUTROPHILS % (AUTO) 72.3 % (40.0-77.0); PLATELET COUNT (AUTO) 78 K/uL (130-400); RED CELL DISTRIBUTION WIDTH 20.9 % (11.0-15.5); WHITE BLOOD COUNT (AUTO) 8.8 K/uL (4.8-10.8)
[2023-02-09 05:14] LABS: CREATININE 1.1 mg/dL (0.5-1.5); MAGNESIUM 1.3 mg/dL (1.80-2.40); POTASSIUM 3.7 mmol/L (3.5-5.1)
[2023-02-09] MEDS: INSULIN HUMULIN R 100 UNIT/ML 3ML SQ SCH ×2 (05:15→12:59)
[2023-02-09 05:32] LABS: B-TYPE NATRIURETIC PEPTIDE 2270 pg/mL (0-100)
[2023-02-09] MEDS: IPRATROPIUM 0.5 MG/2.5 ML INH IH SCH ×2 (06:31→11:26)
[2023-02-09] MEDS: PANTOPRAZOLE 40 MG TAB DR PO SCH (07:16)
[2023-02-09 07:30] VITALS: BP 93/48
[2023-02-09] MEDS: SPIRONOLACTONE 25 MG TAB PO SCH (09:00)
[2023-02-09] MEDS: METOPROLOL SUCCINATE 25 MG TAB.SR.24H PO SCH (09:00)
[2023-02-09] MEDS ORDERED: MAGNESIUM 2GM PREMIX 50ML 100 ML IV PRN (09:30)
[2023-02-09] MEDS: DOXYCYCLINE 100MG+NS 250ML IV SCH (10:55)
[2023-02-09] MEDS: FUROSEMIDE 40 MG TABLET PO SCH (12:05)
[2023-02-09] MEDS: RIVAROXABAN 2.5 MG TABLET PO SCH (12:06)
[2023-02-09] MEDS: METOLAZONE 2.5 MG TABLET PO SCH (12:06)
[2023-02-09] MEDS: SACUBITRIL/VALSARTAN 1 EACH TABLET PO SCH (12:06)
[2023-02-09] MEDS: ASPIRIN 81 MG EC TAB PO SCH (12:06)
[2023-02-09] MEDS: LEVOTHYROXINE 75 MCG TABLET PO SCH (12:06)
[2023-02-09] MEDS: ACETAMINOPHEN 325 MG TAB PO PRN (12:07)
[2023-02-09] MEDS: METOCLOPRAMIDE 10 MG TABLET PO SCH (12:58)
== END 2023-02-09 16:35 | DRG 193 ==
LOC: EDH 18:52 → EDHIP 22:34 → OBSVTOIN 22:34 → EDHIP 22:35 → 4CH 02-02 05:25
PROVIDERS: ADMIT Internal Medicine Critical Care Medicine; ATTEND Internal Medicine Critical Care Medicine
PROC: 02HV33Z Insertion of Infusion Device into Superior Vena Cava, Percutaneous Approach (ICD-10-PCS; principal; 2023-02-09)
DX: J18.9 Pneumonia, unspecified organism (principal); I50.43 Acute on chronic combined systolic (congestive) and diastolic (congestive) heart failure; J96.21 Acute and chronic respiratory failure with hypoxia; N17.9 Acute kidney failure, unspecified; I48.20 Chronic atrial fibrillation, unspecified; I13.0 Hypertensive heart and chronic kidney disease with heart failure and stage 1 through stage 4 chronic kidney disease, or unspecified chronic kidney disease; Z20.822 Contact with and (suspected) exposure to COVID-19; I27.20 Pulmonary hypertension, unspecified; K74.60 Unspecified cirrhosis of liver; E11.51 Type 2 diabetes mellitus with diabetic peripheral angiopathy without gangrene; D69.6 Thrombocytopenia, unspecified; E03.9 Hypothyroidism, unspecified; E11.22 Type 2 diabetes mellitus with diabetic chronic kidney disease; E78.00 Pure hypercholesterolemia, unspecified; I25.10 Atherosclerotic heart disease of native coronary artery without angina pectoris; I25.5 Ischemic cardiomyopathy; N18.31 Chronic kidney disease, stage 3a; Z79.82 Long term (current) use of aspirin; Z79.899 Other long term (current) drug therapy; Z79.01 Long term (current) use of anticoagulants; Z95.5 Presence of coronary angioplasty implant and graft; Z95.1 Presence of aortocoronary bypass graft; Z79.84 Long term (current) use of oral hypoglycemic drugs
CPT/HCPCS: 36415; 36569; 36600; 71045; 78582; 80048; 80053; 82803; 82948; 83735; 83880; 84100; 84145; 84484; 85025; 85027; 85378; 85610; 85730; 87635; 87804; 93005; 93970; 94640; 94664; 97039; A9540; A9558; C1894; G0378; J0696; J1815; J1940; J2543; J3475; J3490; J7040

== ENCOUNTER → 2023-02-22 | Outpatient (CLI) | payer OTHER, MEDICARE ==
[~2023-02-22] MED LIST changes: +ATOR40TA69 PO; -ATOR40TA71 PO; +FURO40TA5 PO; +ONDA4TAB10 PO; +SACU1TAB PO
[2023-02-22 16:35] LABS: CREATININE 1.2 mg/dL (0.5-1.5); POTASSIUM 4.1 mmol/L (3.5-5.1)
== END | disposition home or self-care (01) ==
LOC: LAB 15:19
PROVIDERS: ATTEND Internal Medicine Cardiovascular Disease
DX: I10 Essential (primary) hypertension (principal)
CPT/HCPCS: 36415; 80048; 83880